=== PATIENT | female | born 1970 | race Caucasian/White ===

== ENCOUNTER → 2020-09-01 10:14 | Outpatient (CLI) | payer MEDICARE, OTHER, SELFPAY ==
--- NOTE | 2020-09-01 10:33 | MRI_ITS ---
STUDY: MRI PELVIS (ATTENTION SACROILIAC JOINTS) REASON FOR EXAM: Chronic pain, right greater than left, evaluate for sacroiliitis. TECHNIQUE: Standardized fat and water weighted pulse sequences were obtained in all 3 orthogonal planes. COMPARISON: Radiograph 07/05/2017. FINDINGS: Normal bilateral sacral alae. Normal bilateral sacroiliac joints without periarticular bone edema or osseous erosions. Normal iliac wings. Normal bilateral hip joints and proximal femurs. Normal bilateral inferior and superior pubic rami. Normal pubic symphysis. Normal visualized sacral vertebrae. Normal sacrococcygeal junction with normal visualized coccygeal segments. Normal visualized presacral adipose space. The visualized soft tissue structures of the pelvis are unremarkable. MRI/Pelvis (Routine) IMPRESSION: No MRI manifestations of sacroiliitis. Electronically Signed: Js Conley MD at 11:49 EST Tel , Service support ,
== END ==
PROVIDERS: PCP Family Medicine
DX: M54.9 Dorsalgia, unspecified (principal)
CPT/HCPCS: 72195

== ENCOUNTER 2020-11-06 00:40 | Emergency (ER) | payer OTHER, MEDICARE, SELFPAY ==
[2020-11-06 00:42] VITALS: BP 141/78; PULSE 103; RESP 24; TEMP 37.1; O2SAT 98; BMI 42.7
--- NOTE | 2020-11-06 01:02 | EKG12_ITS ---
Test Reason : CP Blood Pressure : / mmHG Vent. Rate : 096 BPM Atrial Rate : 096 BPM P-R Int : 128 ms QRS Dur : 076 ms QT Int : 354 ms P-R-T Axes : 034 048 015 degrees QTc Int : 447 ms Normal sinus rhythm Cannot rule out Anterior infarct , age undetermined Abnormal ECG Confirmed by BHAVIN MCCLOUD, LENNY ([id number]), marketing editor UMAIR CABRERA ([id number]) on 11/07/2020 11:08:40 AM Referred By: MURTAZA Confirmed By:LENNY DELCID MD
--- NOTE | 2020-11-06 01:02 | RAD_ITS ---
STUDY: X-RAY CHEST REASON FOR EXAM: Female, 49 years old. Indigestion and chest pain TECHNIQUE: Single AP portable view of the chest. COMPARISON: 07/05/2017 FINDINGS: Linear atelectasis versus scar formation at bilateral lung bases, unchanged. No confluent airspace opacity. No pleural effusion or pneumothorax. Normal size heart. Normal mediastinum and gilbert. Normal visualized pulmonary arteries. Normal visualized aortic arch and descending thoracic aorta. There are diffuse degenerative changes of the visualized thoracic spine. Normal visualized ribs, clavicles, and shoulders. There is no demonstrated abnormality of the visualized soft tissue structures of the upper abdomen. RAD/Chest 1 View (Portable) IMPRESSION: No acute cardiopulmonary disease Electronically Signed: Matt Alicea MD at 1:27 EST Tel , Service support ,
--- NOTE | 2020-11-06 01:03 | ED.DCSUM_ITS ---
History of Present Illness Chief Complaint: Chest Pain Informant: Patient Onset: Days - 4 Activity at onset: Unknown - started mild, progressively more uncomfortable Quality: Indigestion Location: Substernal - radiating up into throat, no other radiation Current Severity: Moderate Maximum Severity: Moderate Worsened By: Eating, - - lying supine - worse at night, accordingly Relieved By: Nothing - has only tried taking extra omeprazole Associated Symptoms: Lightheadedness - couple times. Negative for: Nausea, Vomiting, Diaphoresis, Dyspnea, Cough, Fever, Palpitations Narrative: 49-year-old female with nonexertional nonpleuritic chest discomfort that started mildly and has progressively worsened over 4 days. She presents around 1 in the morning because she was getting concerned. She states she thinks it is reflux- related so she took an extra omeprazole off and on, but it is not helping. She has been on omeprazole for reflux for years and does not even remember what reflux symptoms feel like to her because it seems to do its job, and this is unusual despite taking her omeprazole like it is prescribed. She states it is worse when she lies down and it is worse at nighttime, and she feels it worse when food is going down after swallowing. She denies any recent leg pain or swelling, no history of DVT or PE, takes no aspirin or anticoagulants, no history of heart problems that she knows of. CVD Risk Factors: Negative for: Hypertension, Diabetes, Hypercholesterolemia, Family History 1' </=55, Smoking PE Risk Factors: Negative for: Recent Travel/Surgery, Recenet Immobilization, Prior DVT or PE, Cancer, OCP + Smoking + >/=35 - Past Medical History (1) GERD (gastroesophageal reflux disease) Status: Chronic (2) Anxiety Status: Chronic (3) Mood disorder Status: Chronic Past Medical History - Allergies and Home Meds Allergies/Adverse Reactions: Allergies acetaminophen [From Percocet] Allergy (Verified 11/06/20 00:41) Hives NSAIDS (Non-Steroidal Anti-Inflamma Allergy (Verified 11/06/20 00:41) Hives oxycodone [From Percocet] Allergy (Verified 11/06/20 00:41) Hives Primary Care Physician: Care Physician,No Primary [Primary Care Provider] - Surgical History: - - Gastric banding and revision Smoking Status: Never smoker Review of Systems General: Denies: Chills, Fever, Sweats Eyes: Denies: Visual changes - bilaterally, Diplopia ENT: Denies: Bilateral ear pain, Rhinorrhea, Sore throat Cardiovascular: Reports: Chest pain. Denies: Palpitations Respiratory: Denies: Dyspnea, Cough, Dyspnea on exertion, Orthopnea Gastrointestinal: Denies: Abdominal pain, Nausea, Vomiting, Diarrhea, Melena, Hematochezia Genitourinary: Denies: Dysuria, Hematuria, Frequency Musculoskeletal: Reports: Back pain - Mild chronic low back pain, unchanged. Denies: Myalgias, Neck pain, Swelling, Extremity Pain Skin: Denies: Rash, Wounds Neurological: Denies: Headache, Weakness, Numbness Physical Exam Vital Signs/Narrative: Vital Signs Temp Pulse Resp BP Pulse Ox 11/06/20 00:42 98.7 F 103 H 24 H 141/78 H 98 Inital Vital Signs reviewed: Yes General: Well nourished, Well developed, Obese, No Acute Distress Head: Normocephalic, Atraumatic Eyes: Perrl, EOMI ENT: Moist mucous membranes, No rhinorrhea Neck: Supple, Nontender Cardiovascular: Regular rate, Regular rhythm, No murmurs Respiratory: No distress, CTA bilaterally, Chest nontender Abdomen: Soft, Nontender, Nondistended, Normal bowel sounds Back: Nontender, Normal Inspection. Negative for: CVA tenderness Extremities: Nontender, No edema. Negative for: Calf Tenderness Skin: Normal color, No rash, No Trauma Neurological: Alert, Oriented x3, Cranial nerves II-XII grossly intact, Normal Strength, Normal Sensation, Normal Gait Psychological: Normal affect, Normal Mood Diagnostic/Tx/Re-eval Impressions Chest X-Ray 11/06/20 01:02 IMPRESSION: No acute cardiopulmonary disease Electronically Signed: Matt Alicea MD at 1:27 EST Tel , Service support , 11/06/20 01:02 Chest 1 View (Portable) [RAD] Stat Laboratory Results 11/06/20 11/06/20 01:15 01:15 WBC 11.7 H RBC 4.35 Hgb 12.7 Hct 39.9 MCV 91.7 MCH 29.2 MCHC 31.8 L RDW Std Deviation 51.3 H RDW Coeff of Viet 15.3 H Plt Count 158 MPV 11.2 Immature Gran % (Auto) 0.300 Neut % (Auto) 69.8 Lymph % (Auto) 20.9 [place] % (Auto) 6.9 Eos % (Auto) 1.8 Baso % (Auto) 0.3 Absolute Neuts (auto) 8.1 H Absolute Lymphs (auto) 2.44 Nucleated RBC % 0 Sodium 139 Potassium 3.6 Chloride 105 Carbon Dioxide 31.0 Anion Gap 3 L BUN 9 Creatinine 0.58 Estim Creat Clear Calc 102.43 Est GFR (MDRD) Af Amer 142 Est GFR (MDRD) Non-Af 118 BUN/Creatinine Ratio 15.5 Glucose 111 H Calcium 8.8 Troponin I < 0.015 - Rhythm Strip Rhythm Strip: Sinus Rhythm Rate: 95 Ectopy: None - EKG Initial EKG Interpretation: Sinus Rhythm, No Acute Injury Pattern - Slightly late R wave transition but otherwise normal EKG Prior: No Prior Treatment: GI Cocktail TACO Risk: No Positive TACO Elements - Heart score 2 (hx and age) Score: 0 - Medical Decision Making Patient was given a GI cocktail, she states it did not seem to do anything. She is comfortable-appearing and her vital signs are normal, her mild tachycardia resolved and I think was probably related to anxiety. Her work-up is negative including EKG and cardiac enzymes. The machine was calling her EKG is a possible anterior infarct. I think there is a small upward deflection indicating septal depolarization, which would make the downward QRS complex S waves instead of Q waves, and I do not think this is indicative of anything acute. With 4 days of constant discomfort, symptoms that sound gastrointestinal in nature, and a negative troponin, I do not think she needs further emergent work-up tonight for this. She is in agreement, she was given a dicyclomine and a prescription to use it as needed for discomfort, and to follow-up. She she [facility], if her symptoms do not resolve she may need EGD for further investigation but I do not think a CT or anything else will be helpful here tonight. ED Disposition - Plan for ED Patient: Disposition: Home or Assisted Living Diagnosis: Chest pain, unspecified, GERD (gastroesophageal reflux disease) Instructions: ED Chest Pain, Noncardiac Prescriptions: Dicyclomine HCl [Bentyl] 20 mg PO Q6H PRN #20 cap PRN Reason: abdominal cramping Prescription Printed Referrals: Doctor,Your [STAFF PHYSICIAN] - 3-5 Days if not improving
--- NOTE | 2020-11-06 01:10 | ED.RN ---
NO OLD EKG
[2020-11-06] MEDS: Mag Hydrox/Al Hydrox/Simeth 30 ML UDC PO (01:13)
[2020-11-06 01:19] LABS: Absolute Lymphocyte Count 2.44 X10^3/uL (0.83-4.51); Absolute Neutrophil Count 8.1 X10^3/uL (2.0-7.7); Basophil# 0.04 X10^3/uL; Basophil% 0.3 % (0-1); Eosinophil# 0.21 X10^3/uL; Eosinophils% 1.8 % (0-5); Hematocrit 39.9 % (37-47); Hemoglobin 12.7 g/dL (12.0-15.0); Lymphocyte # 2.44 X10^3/ul (4.0); Lymphocyte % 20.9 % (19-41); Mean Corp Hgb Conc 31.8 g/dL (32-36); Mean Corpuscular Hgb 29.2 pg (27.0-32.0); Mean Corpuscular Volume 91.7 fL (81-99); Mean Platelet Vol. 11.2 fl (6.2-12.0); Monocyte# 0.81 X10^3/uL; Monocyte% 6.9 % (0-10); NRBC Flagged by Analyzer 0 % (0-5); Neutrophil # 8.13 X10^3/uL (2.7-7.7); Neutrophil % 69.8 % (47-70); Platelet Count 158 K/mm3 (150-450); RBC Distribution Width CV 15.3 % (11.6-14.6); RBC Distribution Width SD 51.3 fl (35.1-43.9); Red Blood Count 4.35 M/mm3 (4.2-5.4); White Blood Count 11.7 K/mm3 (4.4-11.0)
[2020-11-06 01:38] LABS: Anion Gap 3 (5-15); BUN 9 mg/dL (7-18); BUN/Creat Ratio 15.5 RATIO (10-20); Calcium,Total 8.8 mg/dL (8.5-10.1); Chloride 105 mmol/L (98-107); Creatinine, Serum 0.58 mg/dL (0.55-1.02); EST Glomerular Filtration Rate 118 mL/min (>60); Est Glom Filt Rate - Afr Amer 142 mL/min (>60); Estimated Creatinine Clearance 102.43 ml/min; Glucose 111 mg/dL (74-106); Potassium 3.6 mmol/L (3.5-5.1); Sodium Level 139 mmol/L (136-145)
[2020-11-06 02:24] VITALS: BP 141/84; PULSE 92; RESP 15; O2SAT 95
== END 2020-11-06 02:24 | disposition home or self-care (01) ==
LOC: ED 02:11
PROVIDERS: Emergency Provider Emergency Medicine
DX: K21.9 Gastro-esophageal reflux disease without esophagitis (principal); R07.9 Chest pain, unspecified; Z79.899 Other long term (current) drug therapy; E66.9 Obesity, unspecified
CPT/HCPCS: 71045; 80048; 84484; 85025; 93005; 99285; A4216

== ENCOUNTER 2021-01-15 20:16 | Emergency (ER) | payer OTHER, MEDICARE, SELFPAY ==
[2021-01-15 20:17] VITALS: BP 166/109; PULSE 107; RESP 18; TEMP 36.3; O2SAT 98; BMI 43.9
--- NOTE | 2021-01-15 20:51 | ED.VISSUMM ---
- ER Visit Summary Date of Service: 01/15/21 Chief Complaint: [Left elbow pain] History of Present Illness: The patient is a 50 F [presents to the emergency department with pain in her left elbow that she has had for approximately a week. She denies any injury or trauma. 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 Patient does not do a lot of repetitive motions with her arms. She currently has a torn rotator cuff in her left shoulder for which she is scheduled to see orthopedics on the of the month. Patient complains of pain with pronation and supination at the elbow. She cannot take NSAIDs and states that pain medicines no to anything for her and she does not even take anything after surgeries. Denies recent travel or surgery. Denies chest pain or shortness of breath. She does have history of anxiety and GERD.] Physical Examination: [HEENT-PERRLA, EOMI. Cranial nerves II through XII grossly intact. TMs clear. Mucous membranes moist. No adenopathy. Cardiovascular-regular rate and rhythm without murmur or ectopy Lungs-clear to auscultation, chest wall stable without crepitus or subcu emphysema Abdomen-normoactive bowel sounds, soft, nontender, no rebound or rigidity, no peritoneal signs. Extremities-intact ?4, normal range of motion, normal pulses, atraumatic. Left elbow-there is no erythema or swelling noted. No evidence of trauma. Patient has normal flexion extension at the elbow. She does complain of some discomfort with pronation and supination at the elbow. Has normal range of motion in all the digits. Neurovascularly intact intact.] Test Results: [3 view x-rays of the left elbow obtained interpreted by myself as normal without evidence of fracture dislocation or anything otherwise significant. Official radiology report pending.] Emergency Department Course and Treatment: [Patient was given 40 g of prednisone p.o. as she is requesting this because she has had it in the past for similar issues and has history of arthritis and typically it helps her since she cannot take any other pain medications.] Treatment Plan: [Patient will be given a 5-day course of prednisone. She is advised to follow-up with her orthopedic surgeon.] Disposition: [Discharged home in stable condition] Impression: [Left elbow pain-etiology uncertain] This note was generated with [employer] software. It may contain incorrect words, spelling, and punctuation that were not noted in review of the chart prior to signing ED Disposition - Plan for ED Patient: Referrals: Care Physician,No Primary [NON-STAFF] -
--- NOTE | 2021-01-15 21:06 | RAD_ITS ---
STUDY: X-RAY - LEFT ELBOW REASON FOR EXAM: Female, 50 years old. Pain TECHNIQUE: 3 view(s) of the elbow. COMPARISON: None. FINDINGS: Normal visualized humerus, radius and ulna. Normal radiocapitellar and ulnotrochlear articulations. The soft tissue structures are unremarkable. RAD/Elbow min 3 Views IMPRESSION: Normal x-ray examination of the elbow. Electronically Signed: Duke Morales MD at 21:49 EDT Tel , Service support ,
--- NOTE | 2021-01-15 21:35 | DCINST.ED_ITS ---
ED Disposition - Plan for ED Patient: Instructions: ED Sprain, Elbow Prescriptions: Prednisone [Deltasone] 20 mg PO BID #8 tablet Transmission Status: Pending to [id number] Referrals: Care Physician,No Primary [NON-STAFF] - Olman Logan DO [STAFF PHYSICIAN] - 3-5 Days
[2021-01-15 21:39] VITALS: BP 124/80; PULSE 78; RESP 19; TEMP 36.6; O2SAT 98
[2021-01-15] MEDS: predniSONE 20 MG Tablet 40 MG PO (21:42)
== END 2021-01-15 21:43 | disposition home or self-care (01) ==
LOC: ED 21:11
PROVIDERS: Emergency Provider Emergency Medicine
DX: M25.522 Pain in left elbow (principal); K21.9 Gastro-esophageal reflux disease without esophagitis; F41.9 Anxiety disorder, unspecified; Z79.899 Other long term (current) drug therapy
CPT/HCPCS: 73080; 99283

== ENCOUNTER 2021-03-25 19:10 | Emergency (ER) | payer OTHER, MEDICARE, SELFPAY ==
[2021-03-25 15:49] VITALS: BMI 42.0
[2021-03-25 19:11] VITALS: BP 155/92; PULSE 102; RESP 18; TEMP 36.6; O2SAT 98; BMI 42.8
--- NOTE | 2021-03-25 19:32 | EX.ED.DYSGE1 ---
HPI History of Present Illness Chief Complaint: Other, Pain/Inj Detail of Chief Complaint: Pain in her arms and legs especially the joints Informant: patient Narrative Narrative: Patient presents to the emergency department complaining of pain and inflammation in her hands and elbows as well as shoulders as well as her lower extremities from the hips to the knees and ankles. Patient's had symptoms for over a month. She has had similar episodes in the past that have responded well to prednisone. Patient has been seen by rheumatology at the [facility] and apparently they told her she did not have any inflammation in her body. Patient does not have a primary care physician currently. Patient also complains that she has a small pimple just inferior to her vagina on the right side that her mother tried to pop couple weeks ago but has not resolved. She denies fevers or chills or recent illness. Prior similar symptoms: Yes PFSH PFSH Medical History (Updated 03/25/21 @ 19:[address] Ramón Bradford, DO) Abnormal bruising Arthritis Chest pain Chronic neck and back pain Fatigue Incontinence Knee pain Limb weakness Shoulder pain Tachycardia Uncontrolled hypertension Uveitis Home Medications lithium carbonate 300 mg PO QHS 01/15/21 [History Last Taken Unknown] omeprazole 20 mg PO DAILY 01/15/21 [History Last Taken Unknown] biotin 1 mg capsule 1 mg PO DAILY 03/25/21 [History Last Taken Unknown] cephalexin 500 mg PO Q6 #40 capsule 03/25/21 [Rx Last Taken Unknown] cholecalciferol (vitamin D3) 10 mcg (400 unit) capsule 10 mcg PO DAILY 03/25/21 [History Last Taken Unknown] duloxetine 20 mg capsule,delayed release 20 mg PO BID 03/25/21 [History Last Taken Unknown] prednisone 20 mg PO BID #8 tab 03/25/21 [Rx Last Taken Unknown] Allergy/AdvReac Type Severity Reaction Status Date / Time acetaminophen [From Percocet] Allergy Hives Verified 03/25/21 19:23 adhesive Allergy hives Verified 03/25/21 19:23 NSAIDS (Non-Steroidal Allergy Hives Verified 03/25/21 19:23 Anti-Inflamma oxycodone [From Percocet] Allergy Hives Verified 03/25/21 19:23 Surgical History Surgical history unknown Social History (Updated 03/25/21 @ 15:54 by Rox Escobedo) Smoking Status: Never smoker alcohol intake: current alcohol intake frequency: holidays/special occasions only Alcohol type: other ROS ROS ED Constitutional Constitutional ED: Reports systems reviewed and no addt'l complaints, except as documented; Denies body ache(s), change in weight or chills Eyes Eyes: Denies acute decrease in peripheral vision, change in vision, double vision or loss of vision ENT ENT ED: Reports none; Denies ear pain, lip swelling, loss taste/smell, neck pain, otalgia or sore throat Cardiovascular Cardiovascular: Reports none; Denies abdominal pain, chest pain with activity, leg edema, lightheadedness, palpitations, rapid heart rate or syncope Respiratory/Chest Respiratory/Chest: Reports none; Denies change in mental status, dry cough, dyspnea, hemoptysis, shortness of breath at rest or shortness of breath with exertion Gastrointestinal Gastrointestinal: Reports none; Denies abdominal pain, change in stool character, diarrhea, hematemesis, hematochezia, melena, rectal bleeding or vomiting Genitourinary Genitourinary ED: Reports none and other Details: Pimple/pustule inferior to right side of vagina ; Denies abdominal discomfort, anuria, dysuria, genital pain or polyuria Musculoskeletal Musculoskeletal: Reports none, arthralgias and other; Denies back pain, difficulty walking, extremity pain, muscle weakness or myalgias Integumentary Reports none; Denies abscess or rash Neurologic Neurologic: Reports none; Denies abnormal gait, confusion, focal weakness, frequent falls, headache(s), loss of vision, numbness, paresthesias, radicular pain, vertigo or weakness Psychiatric Psychiatric: Reports systems reviewed and no addt'l complaints, except as documented and none; Denies behavioral changes, confusion, difficulty concentrating, hallucinations, suicidal ideation, tactile hallucinations or visual hallucinations Endocrine Endocrinology: Denies none, cold intolerance, excessive sweating, fatigue or heat intolerance Hematologic/Lymphatic Hematologic/Lymphatic: Reports none; Denies anemia, easy bleeding or easy bruising Allergic/Immunologic Allergic/Immunologic ED: Denies as per HPI, none, lip swelling, mouth swelling, throat swelling, tongue swelling or hives EXAM Physical Exam Const Vital Signs: 03/25/21 19:11 03/25/21 19:23 Temperature 97.9 F Temperature Source Temporal Pulse Rate 102 H Respiratory Rate 18 Respiratory Effort Normal Non-Labored Blood Pressure 155/92 H Blood Pressure Mean 113 Pulse Ox 98 Oxygen Delivery Method Room Air Positive well nourished and well developed General Appearance ED: well developed and NAD HEENT Reports TM's clear and moist mucous membranes normocephalic and atraumatic; Negative for trauma or tenderness Tympanic Membrane ED: Yes TM's clear Eyes PERRL and EOMs intact bilaterally General Eye ED: Negative for pale conjunctiva or scleral icterus Neck no lymphadenopathy, supple and no JVD General: Negative for tenderness Chest Wall inspection of chest normal and palpation of chest normal Chest: Negative for tenderness Resp normal respiratory effort and clear to auscultation bilaterally Effort and Inspection: Negative for respiratory distress or pain with movement Auscultation: Negative for rhonchi, wheezes or diminished lung sounds Cardio regular rate, regular rhythm, S1 normal heart sound, S2 normal heart sound and no murmurs Peripheral Pulses: pulses 2+ throughout GI normal to inspection, nondistended, normoactive bowel sounds, soft to palpation, non-tender, non-distended and no masses Narrative: With nurse in room was able to evaluate patient's complaint of pimple just inferior to the right side of the vagina. On the right side of her buttock inferior to the vagina there is a small pustule that was draining small amount of blood and purulent debris which I was able to continue to express. Back/Spine no CVA tenderness and no thoracic nor lumbar tenderness Extremity normal to inspection Extremity Narrative: Patient has good range of motion in all digits. I do not appreciate any erythema or warmth to the joints. She does complain of pain with range of motion of her fingers. General Extremety ED: Negative for edema General Extremity: Negative for edema Neuro oriented x3, CN's II-XII intact bilaterally, no sensory deficits noted and gait normal Sensorium / Orientation: awake, alert, oriented to person, oriented to place and oriented to time Motor Exam: strength 5/5 throughout and strength abnormal Psych mental status grossly normal Skin no rashes or lesions noted and no wounds MDM MDM MDM Narrative Medical decision making narrative: Patient will be started on prednisone. She will be given a prescription for Keflex. Patient to follow-up with primary care physician loss prevention representative for no doc. Discharge Plan Triage Chief Complaint: Other, Pain/Inj ED Provider: Ramón Bradford Dx/Rx/DC Orders Clinical Impression: Arthralgia, Abscess Instructions: ED Abscess Antibiotic Treatment Only, ED Arthralgia Prescriptions: New cephalexin [cephalexin] 500 MG capsule 500 mg PO Q6 Qty: 40 RF: 0 prednisone 20 mg tablet 20 mg PO BID Qty: 8 RF: 0 No Action cholecalciferol (vitamin D3) 10 mcg (400 unit) capsule 10 mcg PO DAILY RF: 0 biotin 1 mg capsule 1 mg PO DAILY RF: 0 duloxetine [Cymbalta] 20 mg capsule,delayed release(DR/EC) 20 mg PO BID RF: 0 lithium carbonate 300 MG capsule 300 mg PO QHS RF: 0 omeprazole 20 MG capsule,delayed release(DR/EC) 20 mg PO DAILY RF: 0 [facility] Referrals: Shonna Burns MD [STAFF PHYSICIAN] - 3-5 Days [facility] [Primary Care Provider] - Disposition Disposition: Home, Self Care
[2021-03-25] MEDS: predniSONE 20 MG Tablet 40 MG PO (19:52)
== END 2021-03-25 19:53 | disposition home or self-care (01) ==
LOC: ED 19:52
PROVIDERS: Emergency Provider Emergency Medicine
DX: M25.542 Pain in joints of left hand (principal); M25.541 Pain in joints of right hand; M25.522 Pain in left elbow; M25.521 Pain in right elbow; M25.552 Pain in left hip; M25.551 Pain in right hip; M25.562 Pain in left knee; M25.561 Pain in right knee; M25.572 Pain in left ankle and joints of left foot; M25.571 Pain in right ankle and joints of right foot; M25.512 Pain in left shoulder; M25.511 Pain in right shoulder; L02.31 Cutaneous abscess of buttock; I10 Essential (primary) hypertension; Z79.899 Other long term (current) drug therapy
CPT/HCPCS: 99283

== ENCOUNTER → 2021-05-05 08:37 | Outpatient (CLI) | payer MEDICARE, SELFPAY ==
--- NOTE | 2021-05-05 08:41 | BI_ITS ---
MAMMOGRAPHY - BILATERAL SCREENING REASON FOR EXAM: Female, 50 years old. Routine annual screening examination. PERTINENT HISTORY: Non-contributory. TECHNIQUE: Digital bilateral breast renae (3D mammographic acquisition) in the CC and MLO projections. 2-D mediolateral oblique (MLO) and craniocaudad (CC) views of both breasts were obtained. CAD: Full Field Digital Mammography with Computer Added Detection was performed. COMPARISON: No comparison mammograms available at this time. If any prior films become available, an addendum to this report can be generated. FINDINGS: Breast Composition: There are scattered areas of fibroglandular density. There are no dominant masses or suspicious calcifications. Small benign-appearing bilateral axillary lymph nodes. No other significant abnormalities are identified. BI/SCRN MAMM (CAD)W/RENAE BILAT IMPRESSION: Negative screening mammogram. Yearly followup mammogram recommended. (A) ASSESSMENT CATEGORY: BIRADS Category 2: Benign. A letter regarding these results will be sent to the patient by the facility within 30 days. Approximately 10% of breast cancers are not detected by mammography. A normal mammogram should not delay biopsy of a clinically suspicious abnormality. [id number] Electronically Signed: Sammy Degroot MD at 12:53 EDT , Service support ,
== END ==
PROVIDERS: Referring Provider Internal Medicine; Visit Provider Internal Medicine
DX: Z12.31 Encounter for screening mammogram for malignant neoplasm of breast (principal)
CPT/HCPCS: 77063; 77067

== ENCOUNTER 2021-09-04 18:57 | Observation (INO) | payer MEDICARE, SELFPAY ==
[2021-08-24 15:43] LABS: Hematocrit 37.9 % (37-47); Hemoglobin 12.1 g/dL (12.0-15.0); Mean Corp Hgb Conc 31.9 g/dL (32-36); Mean Corpuscular Volume 93.8 fL (81-99); Mean Platelet Vol. 12.6 fl (6.2-12.0); Platelet Count 196 K/mm3 (150-450); RBC Distribution Width SD 52.2 fl (35.1-43.9); Red Blood Count 4.04 M/mm3 (4.2-5.4); White Blood Count 7.9 K/mm3 (4.4-11.0)
[2021-08-24 15:48] LABS: Internal QC Validated? YES +Cl - CLEAR BKGD; Pregnancy, Urine Negative Negative
[2021-08-24 15:55] LABS: International Normalized Ratio 1.1; Prothrombin Time (Protime)PT. 13.3 SECONDS (11.7-14.9)
[2021-08-24 15:56] LABS: Partial Thromboplast Time 34.2 Seconds (24.1-36.2)
[2021-08-24 16:08] LABS: AST(SGOT) 18 U/L (15-37); Alanine Aminotransfer ALT/SGPT 23 U/L (13-56); Albumin, Serum 3.2 g/dL (3.2-5.0); Alkaline Phosphatase 84 U/L (45-117); Bilirubin, Direct 0.07 mg/dL (0.00-0.30); Globulin 3.9 g/dL (2.2-4.2); Magnesium 2.1 mg/dL (1.6-2.6); Protein, Total 7.1 g/dL (6.4-8.2)
[2021-09-04] VITALS (11 sets, daily range): BP systolic 120–156; BP diastolic 80–102; PULSE 83–100; RESP 16–18; TEMP 36.5–37.6; O2SAT 95–100; BMI 43.0
--- NOTE | 2021-09-04 | BR_PTH ---
PATIENT: JENNIFER STAUFFER LOC: MS3 U#:[id number] AGE/SX: 50/F ROOM: [facility] [place] RE09/04/[address]: Dr. Gorge Denton MD : 1970 BED: 1 DIS: 09/05/2021 SPEC #: [id number] RECD: 09/04/21 15:28 STATUS: BRUNO CABANAnia #: [id number] TELMA: 09/04/21 00:[address]: Gorge Denton DEPT: SURGICAL PATHOLOGY RECD BY: Matt Quiros ENTERED: 09/07/21 10:37 SP TYPE: MAMOPLASTY OTHR DR: MD Dr. Pat Gauthier, Tissues: A - Right breast, NOS B - Left breast, NOS Procedures: Surgery Specimen Level IV HEADER OPERATION: ERAS, breast reduction mammoplasty PRE-OP DIAGNOSIS: Bilateral macromastia, neck pain, thoracic back pain, bilateral shoulder pain, inframammary intertrigo TISSUE SUBMITTED: A ? Right breast, B ? Left breast MICROSCOPIC DIAGNOSIS A. Right breast, reduction mammoplasty: Fibrocystic change. Skin with no pathologic change. B. Left breast, reduction mammoplasty: Fibrocystic change. Skin with no pathologic change. AM:trip 09/09/2021 MICROSCOPIC DESCRIPTION Slides are reviewed. GROSS DESCRIPTION A - Received in fixative is one container labeled with the patient's name and designated right breast tissue. The specimen consists of multiple pieces of fibroadipose tissue with a few of the pieces showing romero-white skin and weighing in aggregate 932 gm and measuring in aggregate 24 x 20 x 6 cm. No skin lesion is identified. Sections reveal yellow adipose cut surfaces mixed with scant romero-white fibrous area. No mass lesion is identified. Quartz Orientator sections are submitted in six cassettes. Cassette 1 contains the skin piece. B - Received in fixative is one container labeled with the patient's name and designated left breast tissue. The specimen consists of multiple pieces of fibroadipose tissue with a few of the pieces showing romero-white skin and weighing in aggregate 788 gm and measuring in aggregate 22 x 19 x 6 cm. No skin lesion is identified. Sections reveal yellow adipose cut surfaces mixed with scant fibrous areas. No mass lesion is identified. Quartz Orientator sections are submitted in six cassettes. Cassette 1 contains the skin piece. / SJ:trip 09/07/21 TC:5 CPT: 73113 x2
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
[2021-09-04 07:06] LABS: Internal QC Validated? YES +Cl - CLEAR BKGD; Pregnancy, Urine Negative Negative
[2021-09-04] MEDS: Gabapentin 600 MG Tablet PO (07:20)
[2021-09-04] MEDS: Scopolamine 1mg/72hr Patch 1 PATCH TD (07:21)
[2021-09-04] MEDS: Acetaminophen 500 MG Tablet 1000 MG PO ×2 (07:21→18:25)
[2021-09-04] MEDS: Lactated Ringers 1,000 ML 40 ML IV ×4 (07:50→14:00)
[2021-09-04 07:51] LABS: Bedside Glucose 68 mg/dL (70-110)
[2021-09-04] MEDS: Cefazolin 2 GM in 0.9% Normal Saline 100 ML IV (09:06)
[2021-09-04] MEDS: Lidocaine 1% /Epi 1:100 (20ml) 20 ML Vial (09:45)
--- NOTE | 2021-09-04 15:32 | SUR.PHASEI ---
RASH ON CHEST NOTED ON INTIAL ASSESSMENT IN PRE OP. PATIENT MONITORED ON ERAS ETCO2 NASAL CANNULA IN PHASE 1. WILL CONT TO MONITOR.
--- NOTE | 2021-09-04 16:27 | PCM.OPRPT ---
Problems Associated Problem List Diagnoses (1) Macromastia: (2) Chronic neck pain: (3) Chronic thoracic back pain: (4) Shoulder pain: (5) Intertrigo: Report of Operation Date of Procedure: 09/04/21 Pre-Operative Diagnosis: 1. Bilateral macromastia. 2. Neck pain. 3. Thoracic back pain. 4. Bilateral shoulder pain from shoulder grooving from the weight of the breasts on her bra straps. 5. Inframammary intertrigo. Post-Operative Diagnosis: Same. Surgery/Procedure Performed:: Bilateral breast reduction mammaplasty Description of Surgical Findings:: 50 year old female presents with complaints of bilateral macromastia as well as associated painful symptomatology of neck pain, thoracic back pain, bilateral shoulder pain from shoulder grooving from the weight of her breast on her bra straps, an inframammary intertrigo for which she uses powders for relief. She denies any trauma to her breasts. Denies any nipple discharge. She has had physical therapy in the past without much back pain relief. Her last mammogram was done 05/05/21 and showed Scattered areas of fibroglandular density. There are no dominant masses or suspicious calcifications. Small benign-appearing bilateral axillary lymph nodes. She denies any family history of breast cancer. She has a history of gastric bypass in 2002 where she lost 100 lbs. She has since gained about 80 lbs back. Over the past year she has lost 12 lbs. She has a history of uveitis and had been on steroids, both orally and injected into the eye. We have received medical approval for the bilateral breast reduction mammaplasty. It is scheduled for tomorrow, 09/04/21. She had last minute questions regarding the surgery that were answered personally and to her satisfasction. She also signed the office consent. Patient was informed of the risks and complications of the procedure including alternatives to surgery. These were discussed with the patient personally. Patient voices understanding and wishes to proceed. Some of the risks and complications were included in a form from the [place] [employer]. Potential risks and complications included but not inclusive of bleeding, infection, seroma, hematoma, bruising, swelling, prolonged need for drains, loss of sensation to skin, partial or complete loss of skin flap, wound breakdown, need for wound care, poor scarring, poor aesthetic outcome, intra operative cardiac or neurologic events, DVT, PE, and reaction to anesthesia. Patient voiced understanding and wished to proceed with the surgery. IV Fluids - 3200 ml. Urine Output - 1150 ml. Tissue removed from left breast - 734 grams. Tissue removed from right breast - 810 grams. I used AmnioFix Placental Connective Tissue Graft, (2 x 12 cm, I used 2 pieces, one for each Tzone area). Catalog Number - [id number]. Lot Number - [id number]. Expiration - January, (left breast). Catalog Number - [id number]. Lot Number - [id number]. Expiration - December 01, 2025, (right breast). Surgeon: Gorge Denton enterprise software engineer: Lv Agiuar enterprise software engineer: Fabian Valle Type of Anesthesia: General Specimen's removed: 1. Left breast tissue to Pathology. 2. Right breast tissue to Pathology. Drains: John x2 (one in each breast). Estimated Blood Loss (mL): 150 ml. Fluids Replaced: 4350 ml (IV Fluids 3200 ml, Urine [place] - 1150 ml. Description of Procedure: In the preop area, the patient was placed in the sitting position and preoperative markings were made. The sternum midline was marked down to the umbilicus. The inframammary folds were marked bilaterally. The midclavicular line was then marked down to the nipple, then from the nipple to the inframammary fold. The inframammary fold was then superimposed on the midclavicular line and I made a point 1 cm below that to be the new position of the nipple-areolar complex. 7 cm lines were then drawn divergent from that point to encompass the nipple-areolar complex. The distance between the divergent lines was 10 cm. The patient was then placed in the supine position and taken to the operating room and placed under general anesthesia and her breasts were prepped and draped in usual fashion. Ioban draping was also used. SCDs were placed for DVT prophylaxis. Perioperative antibiotics were given intravenously. A Poe catheter was also placed. I then grayson straight lines down from the lines drawn divergent around the nipple-areolar complex down to the inframammary fold. The width of the pedicle is 10 cm. I then used a 45 mm circular template for a new size of the nipple-areolar complex. The central markings were infiltrated with Xylocaine and epinephrine. The central skin was then deepithelialized. I started on the left side first and then went to the right side. I then mobilized medial and lateral breast flaps at the level of Molina's fascia down to about 1-2 cm from the chest wall. This was met in the midline of the breast with dissection at the level of Molina's fascia down to about 1-2 cm from the chest wall. Once the central breast mound pedicle was from the skin envelope, the reduction was then begun. Most of the tissue was removed from the superior aspect of the breast and the lateral aspect of the breast. I then sutured the leading edge of the medial and lateral breast flaps to the midline of the inframammary fold with 2-0 Vicryl suture. The vertical incision was approximated using surgical clips. The excess tissue from the medial and lateral breast flaps were excised and the horizontal incision was approximated using surgical clips. The patient was then placed in a sitting position. Using a vertical limb length of 5 cm, I grayson the new position of the new nipple-areolar complexes on both breasts. They were in good position on the central aspect of the breast mound. Good symmetry was noted between the left breast and the right breast. Good shape and contour and projection were noted and appeared clinically to be a full C cup. The patient was then placed back in the supine position and the surgical clips were removed. The breast wounds were then irrigated with Irrisept 0.05% Chlorhexidine solution which was followed by saline irrigation. Hemostasis was obtained using electrocautery. The tissue removed from the left breast was 734 grams. The tissue removed from the right breast was 810 grams. The tissue that was removed from the breasts was sent to Pathology for analysis to rule out carcinoma. After hemostasis was obtained using electrocautery, I then sprayed Natacha absorbable hemostat into both breast wounds. I used two vials for each side. I then placed a size 15 John drain into each breast wound to be brought through the lateral aspect of the horizontal incision. I then closed the breast wounds by first approximating the leading edge of the medial and lateral breast flaps to the midline of the inframammary fold with 2-0 Vicryl suture. I then placed AmnioFix placental connective tissue graft into both wounds at the level of the Tzone to help with the healing process. I used 2 x 12 cm for each Tzone, and each piece cut into 2 strips. The deep dermis and subcutaneous tissue of the vertical incision and the horizontal incisions were approximated using 3-0 Monocryl interrupted sutures. The horizontal incision was then approximated using 4-0 V-Loc unidirectional barbed running subcuticular suture. I also placed a few 4-0 Prolene vertical mattress interrupted sutures at the level of the Tzone. The vertical incision was then closed on the skin with 4-0 Prolene interrupted sutures. With a vertical limb length of 5 cm, I grayson a circular incision where the nipple-areolar complex would be brought through this keyhole incision. Incisions were made and the nipple areolar complex was brought through the keyhole incision. The nipple-areolar complex was secured to the breast skin using 3-0 Monocryl interrupted sutures for deep dermis and subcutaneous tissue. The skin was approximated using 4-0 Prolene simple interrupted sutures. This was then covered with Histoacryl skin tissue adhesive. I sutured the drains to the skin using 3-0 nylon suture. At the end of the procedure, the breasts were soft with no evidence of vascular compromise. No evidence of hematomas were noted. The nipples were viable. I then dressed the breasts with a Kerlix gauze and a compression marko wrap. Then patient tolerated the procedure well and will be sent to the recovery room in satisfactory condition. She will be admitted for surgical observation overnight stay. She will go home tomorrow once she is tolerating oral pain medication. I will remove the drains in a few days. She will keep her head elevated during the initial postoperative period. She will be maintained on a lifting restriction and keep her head elevated during the initial postoperative period. Post-discharge, she may get a compression sports bra as well. She will have the Poe removed in the morning. She will be sent home on antibiotics and pain medicine. Sutures will be removed in 1-2 weeks. Grafts/Implants Used: AmnioFix Placental Connective Tissue grafts x2, Natacha. Complications None. Admit VTE Documentation VTE Present on Admission: No VTE Mechan Device Prophylaxis: SCD's VTE Pharm Prophylaxis ordered?: Yes Addendum Addendum: SURGERY CHARGES CPT - 73282 ICD-10 - N62, M54.2, M54.6, M25.519, L340.4 [id number] N62, M54.2, M54.6, M25.519, L340.4
--- NOTE | 2021-09-04 16:37 | SUR.PHASEI ---
ERAS O2 NASAL CANNULA ON UNTIL 1704
--- NOTE | 2021-09-04 16:46 | SUR.PHASEI ---
VM LEFT FOR DR. WHITE TO ENTER ADMISSION ORDER AND FLOOR ORDERS. PATIENT AWAITING TRANSFER TO FLOOR. VSS. WILL CONT TO MONITOR.
--- NOTE | 2021-09-04 16:51 | SUR.PHASEI ---
MOTHER, SHELL UPDATED BY PHONE.
--- NOTE | 2021-09-04 17:12 | SUR.PHASEII ---
THIS NURSE VERBALLY ASKED DR. WHITE TO WRITE ORDERS FOR PATIENT TO BE TRANSFERRED UP TO THIRD FLOOR.
--- NOTE | 2021-09-04 20:52 | NURSING ---
Patient told this RN that she was very painful 8/10, then within three minutes was asleep and snoring.
[2021-09-04] MEDS: Lactated Ringers 1,000 ML 60 ML IV (21:03)
[2021-09-04] MEDS: Docusate Sodium 100 MG Capsule PO (21:03)
[2021-09-05] MEDS: Acetaminophen 500 MG Tablet 1000 MG PO ×4 (00:37→18:24)
[2021-09-05] MEDS: HYDROmorphone 1 MG/ML Syringe IV (00:37)
[2021-09-05 02:04] VITALS: BP 145/89; PULSE 101; RESP 16; TEMP 36.7; O2SAT 94
[2021-09-05 05:27] VITALS: BP 132/71; PULSE 73; RESP 20; TEMP 36.7; O2SAT 93
[2021-09-05 06:54] VITALS: O2SAT 93
[2021-09-05 07:27] LABS: Hematocrit 30.9 % (37-47); Mean Corp Hgb Conc 32.4 g/dL (32-36); Mean Corpuscular Hgb 29.6 pg (27.0-32.0); Mean Corpuscular Volume 91.4 fL (81-99); Mean Platelet Vol. 11.4 fl (6.2-12.0); Platelet Count 176 K/mm3 (150-450); RBC Distribution Width SD 50.3 fl (35.1-43.9); Red Blood Count 3.38 M/mm3 (4.2-5.4); White Blood Count 10.3 K/mm3 (4.4-11.0)
[2021-09-05 07:51] LABS: Anion Gap 5 (5-15); BUN 6 mg/dL (7-18); BUN/Creat Ratio 11.2 RATIO (10-20); Calcium,Total 8.2 mg/dL (8.5-10.1); Chloride 108 mmol/L (98-107); Creatinine, Serum 0.54 mg/dL (0.55-1.02); EST Glomerular Filtration Rate 128 mL/min (>60); Est Glom Filt Rate - Afr Amer 155 mL/min (>60); Estimated Creatinine Clearance 104.25 ml/min; Glucose 112 mg/dL (74-106); Potassium 3.8 mmol/L (3.5-5.1); Sodium Level 140 mmol/L (136-145)
[2021-09-05 07:59] LABS: Prealbumin 13.6 mg/dL (20.0-40.0)
[2021-09-05] MEDS: Ensure Surgery 237 ML LIQUID PO ×2 (08:36→12:25)
[2021-09-05 08:42] VITALS: BP 111/61; PULSE 107; RESP 18; TEMP 36.9; O2SAT 99
[2021-09-05] MEDS: Pantoprazole Sodium 20 MG Tablet PO (10:59)
[2021-09-05] MEDS: Enoxaparin 40 MG/0.4 ML Syringe SC (10:59)
[2021-09-05] MEDS: Docusate Sodium 100 MG Capsule PO (10:59)
--- NOTE | 2021-09-05 12:30 | PCS.PANDOC ---
PANDEMIC DOCUMENTATION INITIATED: Date: 05/18/2021 Time: 190
[2021-09-05 14:32] VITALS: BP 126/66; PULSE 98; RESP 18; TEMP 37.1; O2SAT 98
--- NOTE | 2021-09-05 19:39 | PCM.PN.SRG ---
Subjective Subjective Postop #1 Patient is resting comfortably. She is steady on her feet with ambulation. After cam removed, she is voiding without difficulty. Objective Data Objective Data Vital Signs: Vital Signs Temp Pulse Resp BP Pulse Ox 98.7 F 98 18 126/66 H 98 09/05/21 14:32 09/05/21 14:32 09/05/21 14:32 09/05/21 14:32 09/05/21 14:32 Oxygen Flow Rate (L/min) 2 Oxygen Delivery Method Room Air Weight: 242 lb 8.136 oz Body Mass Index (BMI) 43.0 Intake & Output: Intake and Output for Last 24 Hours 09/03/21 09/04/21 09/05/21 23:59 23:59 23:59 Intake Total 3393.17 / 3393.17 3573.33 / 3573.33 Output Total 1513 / 1913 2400 / 2400 Balance 1880.17 / 1480.17 1173.33 / 1173.33 Drainage 103 ml yesterday, 60 ml today. Lab / Micro Data Attestation: I reviewed the patient's lab results. Result Diagrams: 09/05/21 07:01 09/05/21 07:01 Labs: Laboratory Results - last 24 hr 09/05/21 07:01: Prealbumin 13.6 L 09/05/21 07:01: WBC 10.3, RBC 3.38 L, Hgb 10.0 L, Hct 30.9 L, MCV 91.4, MCH 29.6, MCHC 32.4, RDW Std Deviation 50.3 H, RDW Coeff of Viet 15.0 H, Plt Count 176, MPV 11.4 09/05/21 07:01: Sodium 140, Potassium 3.8, Chloride 108 H, Carbon Dioxide 27.0, Anion Gap 5, BUN 6 L, Creatinine 0.54 L, Estim Creat Clear Calc 104.25, Est GFR (MDRD) Af Amer 155, Est GFR (MDRD) Non-Af 128, BUN/Creatinine Ratio 11.2, Glucose 112 H, Calcium 8.2 L Physical Exam Narrative General - Alert and Oriented. HEENT - PERRL. EOMI. Neck - Supple and nontender. Breasts - soft and symmetrical. No clinical evidence of hematoma. Incisions are dry and intact. Nipples are viable. Abdomen - Soft and nondistended. Extremities - FROM. No axillary adenopathy. Radial pulses are palpable. Neuro - CN II-XII grossly intact. Psych - Normal mood and affect. Assessment & Plan Assessment/Plan (1) Macromastia: (2) Chronic neck pain: (3) Chronic thoracic back pain: (4) Shoulder pain: (5) Intertrigo: PLAN: Patient is tolerating po analgesia. She is steady on her feet with ambulation. Her breasts are soft and symmetrical. No clinical evidence of hematoma. Incisions are dry and intact. Nipples are viable. Will remove her drains in the office next week. Hgb 10.0. Prealbumin was 13.6. Encourage nutritional supplementation with protein to help the healing process. Discharge home today. Continue head elevation and marko wrap compression over the breasts. Will be on a lifting restriction. Wrote script for Cefadroxil until the drains are removed. Wrote script for Dilaudid for pain, 4 mg, (28 tabs). Followup office on 09/08/21, to remove the drains. The nipple sutures will be removed the following week.
--- NOTE | 2021-09-05 19:40 | PCM.DC ---
Discharge Instructions Diet Discharge Diet: No restrictions Activity Discharge Activity: May Not Drive (until the drains are removed.) and - (keep head elevated. no heavy lifting.) May shower in (days): 4 (after the drains are removed.) May resume sexual activity in: 10-14 days Weight Bearing Status: Weight bearing as tolerated Lifting Restrictions: 20 lbs. Keep extremity elevated above heart level: - (elevate head.) Dressing / Incision Call your doctor if your incision/area has: Continuous Slow Oozing, Sudden Increased Bleeding, Increased Pain/ Swelling, Increased Redness, Foul Smelling Discharge, Swelling at the incision site and - (nipples turning black.) Call your doctor if you observe: Fever of 101 or Higher, Coldness, Increased Pain, Shortness of breath, Chest pain, Calf discomfort and Uncontrolled pain Suture Line Care: - (dry dressing daily followed by compression marko wrap.) Change Dressing in: 1 day (dry dressing daily.) Cleanse incision/area with: - (may get incisions wet in the shower after the drains are removed.) Drain: Suction (empty and record output daily.) Follow Up Care Please Follow Up With: Gorge Denton MD When: tuesday09/07/21. call [phone] for appointment time. Test Results: Test results from this visit will be discussed in further detail at your follow-up appointment, if applicable. Discharge Plan Admission Admit Date/Time: 09/04/21 18:57 Primary Reason for Your Visit: breast reduction surgery Attending Provider: Gorge Denton Primary Care Provider: Pat Brown Consulting Providers: Daniel Doss Discharge Orders/Prescriptions Prescriptions: New cefadroxil 500 mg capsule 500 mg PO BID Qty: 10 RF: 0 L.acidoph,saliva-B.bif-S.therm [Acidophilus Probiotic Blend] 175 mg capsule 1 cap PO DAILY Qty: 10 RF: 0 hydromorphone [Dilaudid] 4 mg tablet 4 mg PO Q6H PRN (Reason: pain (scale score 7-10)) 7 Days Qty: 28 RF: 0 Continued cholecalciferol (vitamin D3) 10 mcg (400 unit) capsule 10 mcg PO DAILY RF: 0 biotin 1 mg capsule 1 mg PO DAILY RF: 0 lithium carbonate 300 MG capsule 450 mg PO QHS RF: 0 omeprazole 20 MG capsule,delayed release(DR/EC) 20 mg PO DAILY RF: 0 multivitamin Tablet 1 tab PO DAILY RF: 0 duloxetine [Cymbalta] 60 mg Capsule,Delayed Release(Dr/Ec) 120 mg PO DAILY RF: 0 Probiotic 10 billion cell Capsule 10,000 mmu cells PO DAILY RF: 0 Referrals / Follow Up: Pat Brown DO [Primary Care Provider] - Disposition Disposition (needs filled in before D/C Order can be placed): Home, Self Care
[2021-09-05 20:06] VITALS: BP 132/76; PULSE 101; RESP 18; TEMP 37.3; O2SAT 97
== END 2021-09-05 20:07 | disposition home or self-care (01) ==
LOC: SDC 09-05 03:34 → MS3 09-05 19:50
PROVIDERS: Anesthesiology; Admitting Provider Surgery; PCP Internal Medicine; Referring Provider Surgery; Visit Provider Surgery
PROC: 0H0U0ZZ Alteration of Left Breast, Open Approach (ICD-10-PCS; CPT 19318; principal; 2021-09-04 08:15)
DX: N62 Hypertrophy of breast (principal); G89.29 Other chronic pain; M54.2 Cervicalgia; M54.6 Pain in thoracic spine; M25.512 Pain in left shoulder; M25.511 Pain in right shoulder; L30.4 Erythema intertrigo; Z98.84 Bariatric surgery status; M19.90 Unspecified osteoarthritis, unspecified site; F32.A Depression, unspecified; K21.9 Gastro-esophageal reflux disease without esophagitis; K58.9 Irritable bowel syndrome, unspecified; I10 Essential (primary) hypertension; Z79.899 Other long term (current) drug therapy; R53.83 Other fatigue; R32 Unspecified urinary incontinence; D64.9 Anemia, unspecified; R07.9 Chest pain, unspecified; H91.90 Unspecified hearing loss, unspecified ear; R00.0 Tachycardia, unspecified; N60.11 Diffuse cystic mastopathy of right breast
CPT/HCPCS: 00402; 19318; 36415; 80048; 80076; 81025; 82962; 83735; 84134; 85027; 85610; 85730; 88305; 96372; 96374; 99218; 99251; J7120; G0378; G0463; J2405; Q9968

== ENCOUNTER → 2021-09-24 14:40 | Outpatient (CLI) | payer MEDICARE, SELFPAY | PROVIDERS: PCP Internal Medicine; Visit Provider Nurse Practitioner Family | DX: T81.89XA Other complications of procedures, not elsewhere classified, initial encounter (principal); N62 Hypertrophy of breast; L30.4 Erythema intertrigo; M25.519 Pain in unspecified shoulder; M54.6 Pain in thoracic spine; B37.2 Candidiasis of skin and nail; G89.29 Other chronic pain; M54.2 Cervicalgia; Z98.890 Other specified postprocedural states | CPT/HCPCS: 87070; 87075; 87077; 87205 ==

== ENCOUNTER 2021-11-02 13:46 | Outpatient (RCR) | payer MEDICARE, SELFPAY | END 2021-11-02 23:59 | disposition home or self-care (01) | LOC: DC 13:46 | PROVIDERS: PCP Internal Medicine; Visit Provider Internal Medicine | DX: E11.9 Type 2 diabetes mellitus without complications (principal) | CPT/HCPCS: 97802 ==

== ENCOUNTER 2021-12-25 09:12 | Outpatient (CLI) | payer MEDICARE, SELFPAY ==
--- NOTE | 2021-12-25 09:29 | BI_ITS ---
MAMMOGRAPHY - UNILATERAL DIAGNOSTIC: RIGHT BREAST REASON FOR EXAM: Female, 51 years old. Right breast pain following breast reduction surgery. PERTINENT HISTORY: Non-contributory. TECHNIQUE: Digital unilateral breast fab (3D mammographic acquisition) in the CC and MLO projections. 2-D mediolateral oblique (MLO) and craniocaudad (CC) views of both breasts were obtained. CAD: Full Field Digital Mammography with Computer Added Detection was performed. COMPARISON: Comparison is made with prior examination dated 05/05/2021. FINDINGS: Breast Composition: There are scattered areas of fibroglandular density. Since prior study, the patient underwent breast reduction surgery. There is evidence of increased markings in the deep inferior medial aspect of the right breast most likely representing postoperative changes. Stable appearance of the right axillary lymph nodes. Correlation with ultrasound is recommended. No other significant abnormalities are identified. BI/DIAG MAMM W/CAD, UNILAT IMPRESSION: Status post breast reduction surgery with interval increased markings in the deep inferior medial aspect of the right breast. Correlation with ultrasound at the site of the pain is recommended. ASSESSMENT CATEGORY: BIRADS Category 0: Incomplete. Need additional imaging evaluation. A letter regarding these results will be sent to the patient by the facility within 30 days. Approximately 10% of breast cancers are not detected by mammography. A normal mammogram should not delay biopsy of a clinically suspicious abnormality. Electronically Signed: Sammy Degroot MD at 11:12 EDT ,
--- NOTE | 2021-12-25 09:29 | US_ITS ---
STUDY: ULTRASOUND BREAST - RIGHT REASON FOR EXAM: Female, 51 years old. Right breast pain. Status post bilateral breast reduction surgery. TECHNIQUE: Axial and longitudinal images of the RIGHT breast were performed with a high resolution ultrasound transducer. # OF IMAGES: 48 COMPARISON: Comparison is made with prior mammogram done earlier today. FINDINGS: RIGHT Breast: The inferior half of the right breast was examined by ultrasound. There is an 8 mm x 8 mm x 3 mm cyst at the 5 o''clock position the breast at 3 cm from the nipple. The overlying skin is erythematous. US/Breast Limited Unilateral IMPRESSION: 8 mm x 8 mm x 3 mm cyst at the 5 o''clock position breast at 3 cm from the nipple. The overlying skin is erythematous. Clinical correlation is recommended. ASSESSMENT CATEGORY: BIRADS Category 2: Benign. A letter regarding these results will be sent to the patient by the facility within 30 days. Electronically Signed: Sammy Degroot MD at 14:36 EDT ,
== END 2021-12-25 23:59 | disposition home or self-care (01) ==
PROVIDERS: PCP Internal Medicine; Referring Provider Nurse Practitioner Family; Visit Provider Nurse Practitioner Family
DX: N64.4 Mastodynia (principal); N63.10 Unspecified lump in the right breast, unspecified quadrant; T81.41XA Infection following a procedure, superficial incisional surgical site, initial encounter; N62 Hypertrophy of breast; Z98.890 Other specified postprocedural states
CPT/HCPCS: 76642; 77061; 77065; G0279

== ENCOUNTER 2022-02-27 22:09 | Emergency (ER) | payer OTHER, SELFPAY ==
[2022-02-27 22:10] VITALS: BP 157/99; PULSE 99; RESP 16; TEMP 37.4; O2SAT 97; BMI 41.1
--- NOTE | 2022-02-28 00:04 | EX.ED.DYSGE1 ---
HPI History of Present Illness Chief Complaint: General Illness Informant: patient Narrative Narrative: Patient presents with lower extremity symptoms starting about a day or so after her pain pump stopped functioning. She has been having some tingling and burning in both anterior legs. She feels a bit anxious. However she has had no headache. No tremors. No nausea vomiting. No sleepiness or drowsiness. No dry mouth. [place] [address] Block manages this. He just refilled it recently with saline to check it. It emptied very quickly. They think its been draining quicker than it is supposed to. It is likely in need of replacement due to its age and malfunction. She is going to be seeing him again on Tuesday. She states she just is having trouble with the symptoms. [facility] Medical History Abnormal bruising Anemia Arthritis Autoimmune disease Back pain Back problem Carpal tunnel syndrome Cataracts, bilateral Chest pain Chronic neck and back pain Chronic neck pain Chronic thoracic back pain Depression Excessive bleeding Fatigue Gallstones Gastric reflux Generalized headaches Hearing problem History of edema History of pain when walking History of steroid therapy IBS (irritable bowel syndrome) Incontinence Injury of back Intertrigo Knee pain Limb weakness Macromastia Migraine headache Non-smoker Pneumonia Rash Shoulder pain Shoulder pain Tachycardia Uncontrolled hypertension Uveitis Vision changes Home Medications lithium carbonate 450 mg PO QHS 01/15/21 [History Last Taken Unknown] omeprazole 20 mg PO DAILY 01/15/21 [History Last Taken 09/04/21] biotin 1 mg capsule 1 mg PO DAILY 03/25/21 [History Last Taken Unknown] cholecalciferol (vitamin D3) 10 mcg (400 unit) capsule 10 mcg PO DAILY 03/25/21 [History Last Taken Unknown] duloxetine [Cymbalta] 120 mg PO DAILY 08/21/21 [History Last Taken Unknown] multivitamin 1 tab PO DAILY 08/21/21 [History Last Taken Unknown] Allergy/AdvReac Type Severity Reaction Status Date / Time methylene blue Allergy Mild Rash, Verified 02/27/22 22:14 Itching acetaminophen [From Percocet] Allergy Hives Verified 02/27/22 22:14 adhesive Allergy hives Verified 02/27/22 22:14 NSAIDS (Non-Steroidal Allergy Hives Verified 05/28/22 22:14 Anti-Inflamma oxycodone [From Percocet] Allergy Hives Verified 02/27/22 22:14 Family History Other Arthritis Depression Hypertension Severe allergy Surgical History Ganglion cyst History of Achilles tendon repair History of History of carpal tunnel release of both wrists History of cataract surgery History of discectomy History of incisional hernia repair History of meniscal tear History of tonsillectomy and adenoidectomy History of vitrectomy Hx laparoscopic cholecystectomy Hx of bilateral breast reduction surgery Hx of laparoscopic gastric banding Rotator cuff tear Surgical history unknown Tendinitis of wrist Total knee replacement status Social History Smoking Status: Never smoker alcohol intake: current alcohol intake frequency: holidays/special occasions only Alcohol type: other substance use type: does not use additional social history: Does Not Take Aspirin Does Not Take Ibuprofen ROS ROS ED Constitutional Constitutional ED: Reports subjective and other Details: Patient occasionally feels febrile or feverish but when her temperature is taken its normal. ; Denies chills or fever(s) Eyes Eyes: Denies blurry vision, change in vision or diplopia ENT ENT ED: Denies rhinorrhea or sore throat Cardiovascular Cardiovascular: Denies chest pain or palpitations Respiratory/Chest Respiratory/Chest: Denies cough, dyspnea or sputum Gastrointestinal Gastrointestinal: Denies abdominal pain, nausea or vomiting Genitourinary Genitourinary ED: Denies dysuria Musculoskeletal Musculoskeletal: Reports back pain and myalgias Integumentary Denies abscess or rash Neurologic Neurologic: Denies headache(s) or weakness Psychiatric Psychiatric: Denies depression Endocrine Endocrinology: Denies polydipsia or polyuria Allergic/Immunologic Allergic/Immunologic ED: Denies urticaria EXAM Physical Exam Const Vital Signs: 02/27/22 22:10 02/27/22 22:23 Temperature 99.3 F H Temperature Source Temporal Pulse Rate 99 Respiratory Rate 16 Respiratory Effort Normal Non-Labored Respiratory Pattern Normal Blood Pressure 157/99 H Blood Pressure Mean 118 Pulse Ox 97 Oxygen Delivery Method Room Air Positive well nourished and well developed General Appearance ED: well developed and NAD HEENT Reports moist mucous membranes; Denies dry mucous membranes Mouth ED: No dry mucous membranes Mouth: No dry mucous membranes Eyes General Eye ED: Negative for pale conjunctiva or scleral icterus Neck No no JVD Chest Wall inspection of chest normal Resp normal respiratory effort and clear to auscultation bilaterally Cardio regular rate and regular rhythm GI normal to inspection, nondistended, normoactive bowel sounds and non-tender Palpation: soft Back/Spine no CVA tenderness Back/Spine Narrative: Pain pump is palpable in left upper buttock. No signs of infection. No notable tenderness. Extremity normal to inspection Extremity Narrative: There are no tremors of hands or feet. Reflexes are slightly stronger left than the right but she is also had surgery on the right over her patellar tendon. The Achilles reflexes are normal. Her strength is normal. Her gait is normal. No sign of neurologic deficit. General Extremety ED: Negative for edema or tenderness General Extremity: Negative for edema Neuro oriented x3 Sensorium / Orientation: alert Psych mental status grossly normal Skin no rashes or lesions noted and no wounds MDM MDM MDM Narrative Medical decision making narrative: I talked to patient's about options. I explained that I cannot fix or manage her pain pump. I cannot prescribe her long-term pain meds as she is already seen in pain management. I will try to help with a dose of morphine here. She states that oral medicines really do not help for her at all. This patient has no loss of sensation or strength or coordination. No bowel or bladder dysfunction. I do not think she needs acute imaging. She is really having isolated lower extremity symptoms. This is not typical of a lithium abnormality. I think she we will try to control her symptoms here. She plans to see her pain management doctor on Tuesday Discharge Plan Triage Chief Complaint: General Illness ED Provider: Cheko Shea Dx/Rx/DC Orders Clinical Impression: Left leg paresthesias Instructions: ED Paraesthesias Prescriptions: No Action cholecalciferol (vitamin D3) 10 mcg (400 unit) capsule 10 mcg PO DAILY RF: 0 biotin 1 mg capsule 1 mg PO DAILY RF: 0 lithium carbonate 300 MG capsule 450 mg PO QHS RF: 0 omeprazole 20 MG capsule,delayed release(DR/EC) 20 mg PO DAILY RF: 0 multivitamin Tablet 1 tab PO DAILY RF: 0 duloxetine [Cymbalta] 60 mg Capsule,Delayed Release(Dr/Ec) 120 mg PO DAILY RF: 0 Primary Care Provider: Pat Brown Referrals: Ramy Block MD [STAFF PHYSICIAN] - As soon as possible Pat Brown DO [Primary Care Provider] - Disposition Disposition: Home, Self Care
[2022-02-28] MEDS: morphine 10 MG/ML Syringe 4 MG SC (00:14)
== END 2022-02-28 00:27 | disposition home or self-care (01) ==
PROVIDERS: Emergency Provider Emergency Medicine; PCP Internal Medicine; Visit Provider Emergency Medicine
DX: R20.2 Paresthesia of skin (principal); I10 Essential (primary) hypertension
CPT/HCPCS: 87635; 96372; 99282; U0003; U0005

== ENCOUNTER 2022-02-28 10:34 | Emergency (ER) | payer OTHER, SELFPAY ==
[2022-02-28 10:35] VITALS: BP 189/107; PULSE 104; RESP 18; TEMP 36.6; O2SAT 97; BMI 41.6
--- NOTE | 2022-02-28 10:52 | EX.ED.DYSGE1 ---
HPI History of Present Illness Chief Complaint: Lower Extremity Injury Detail of Chief Complaint: Bilateral leg pain Informant: patient Onset/Context/Timing Onset: Days Context: Gradual Onset Timing: Waxes and wanes Current Severity: Moderate Maximum Severity: Moderate Narrative Narrative: Patient presents with restless sensation in the bilateral thighs. She has a history of chronic back pain for which she has had a morphine pain pump. She states the alarm went off recently indicating that the pump emptied faster than it should have. She saw Dr. Block last week who filled it with saline. It emptied after only 3 days. Patient is complaining of pain in her thighs. She states the pain pump was used to treat her back pain only, she never really had problems with restless legs. She was seen in the ER last night and given 4 mg of subcu morphine which she states did not help her symptoms. She states she did drive herself to the emergency room. She understands that we cannot write her for injectable pain medication and she states that oral pain medications do not help her. She states she is just hoping to get something to help with the restless sensation in her legs. [facility] Medical History Abnormal bruising Anemia Arthritis Autoimmune disease Carpal tunnel syndrome Cataracts, bilateral Chronic neck and back pain Depression Excessive bleeding Gallstones Gastric reflux Generalized headaches Hearing problem History of edema History of pain when walking History of steroid therapy IBS (irritable bowel syndrome) Incontinence Injury of back Intertrigo Knee pain Limb weakness Macromastia Non-smoker Shoulder pain Tachycardia Uncontrolled hypertension Uveitis Vision changes Home Medications lithium carbonate 450 mg PO QHS 01/15/21 [History Last Taken Unknown] omeprazole 20 mg PO DAILY 01/15/21 [History Last Taken 09/04/21] biotin 1 mg capsule 1 mg PO DAILY 03/25/21 [History Last Taken Unknown] cholecalciferol (vitamin D3) 10 mcg (400 unit) capsule 10 mcg PO DAILY 03/25/21 [History Last Taken Unknown] duloxetine [Cymbalta] 120 mg PO DAILY 08/21/21 [History Last Taken Unknown] multivitamin 1 tab PO DAILY 08/21/21 [History Last Taken Unknown] pramipexole [Mirapex] 0.125 mg PO DAILY #14 tab 02/28/22 [Rx Last Taken Unknown] Allergy/AdvReac Type Severity Reaction Status Date / Time methylene blue Allergy Mild Rash, Verified 02/28/22 10:37 Itching acetaminophen [From Percocet] Allergy Hives Verified 02/28/22 10:37 adhesive Allergy hives Verified 02/28/22 10:37 NSAIDS (Non-Steroidal Allergy Hives Verified 02/28/22 10:37 Anti-Inflamma oxycodone [From Percocet] Allergy Hives Verified 02/28/22 10:37 Family History Other Arthritis Depression Hypertension Severe allergy Surgical History Ganglion cyst History of Achilles tendon repair History of History of carpal tunnel release of both wrists History of cataract surgery History of discectomy History of incisional hernia repair History of meniscal tear History of tonsillectomy and adenoidectomy History of vitrectomy Hx laparoscopic cholecystectomy Hx of bilateral breast reduction surgery Hx of laparoscopic gastric banding Rotator cuff tear Surgical history unknown Tendinitis of wrist Total knee replacement status Social History Smoking Status: Never smoker alcohol intake: current alcohol intake frequency: holidays/special occasions only Alcohol type: other substance use type: does not use additional social history: Does Not Take Aspirin Does Not Take Ibuprofen ROS ROS ED Constitutional Constitutional ED: Denies chills or fever(s) Eyes Eyes: Denies change in vision ENT ENT ED: Denies sore throat Cardiovascular Cardiovascular: Denies chest pain Respiratory/Chest Respiratory/Chest: Denies cough or dyspnea Gastrointestinal Gastrointestinal: Denies abdominal pain, nausea or vomiting Genitourinary Genitourinary ED: Denies dysuria Musculoskeletal Musculoskeletal: Reports arthralgias, back pain and myalgias Integumentary Denies rash Neurologic Neurologic: Denies headache(s) or weakness Allergic/Immunologic Allergic/Immunologic ED: Denies urticaria EXAM Physical Exam Const Vital Signs: 02/28/22 10:35 Temperature 98 F Temperature Source Temporal Pulse Rate 104 H Respiratory Rate 18 Blood Pressure 189/107 H Blood Pressure Mean 134 Pulse Ox 97 Oxygen Delivery Method Room Air Positive well nourished and well developed General Appearance ED: well developed HEENT Reports moist mucous membranes Eyes PERRL and EOMs intact bilaterally Neck supple Chest Wall inspection of chest normal and palpation of chest normal Resp normal respiratory effort and clear to auscultation bilaterally Cardio regular rate and regular rhythm GI normal to inspection, nondistended, normoactive bowel sounds and non-tender Palpation: soft Extremity Extremity Narrative: No reproducible tenderness over the legs. Good range of motion at joints. Strong distal pulses. Neuro oriented x3 Sensorium / Orientation: alert Psych mental status grossly normal Skin no rashes or lesions noted MDM MDM MDM Narrative Medical decision making narrative: Patient will be started on Mirapex and given a 2-week supply. She is scheduled to see her pain management doctor in a few days for follow-up. Discharge Plan Triage Chief Complaint: Lower Extremity Injury ED Provider: Suyapa Snow Dx/Rx/DC Orders Clinical Impression: Restless leg syndrome Instructions: RLS What to Do Prescriptions: New pramipexole [Mirapex] 0.125 mg tablet 0.125 mg PO DAILY Qty: 14 RF: 0 No Action cholecalciferol (vitamin D3) 10 mcg (400 unit) capsule 10 mcg PO DAILY RF: 0 biotin 1 mg capsule 1 mg PO DAILY RF: 0 lithium carbonate 300 MG capsule 450 mg PO QHS RF: 0 omeprazole 20 MG capsule,delayed release(DR/EC) 20 mg PO DAILY RF: 0 multivitamin Tablet 1 tab PO DAILY RF: 0 duloxetine [Cymbalta] 60 mg Capsule,Delayed Release(Dr/Ec) 120 mg PO DAILY RF: 0 Primary Care Provider: Pat Brown Referrals: Ramy Block MD [STAFF PHYSICIAN] - Keep [place] appointment Pat Brown DO [Primary Care Provider] - As Needed Disposition Disposition: Home, Self Care Discharge Date/Time: 02/28/22 11:07
== END 2022-02-28 11:07 | disposition home or self-care (01) ==
LOC: ED 10:55
PROVIDERS: Emergency Provider Emergency Medicine; PCP Internal Medicine; Visit Provider Emergency Medicine
DX: G25.81 Restless legs syndrome (principal); M54.9 Dorsalgia, unspecified; M79.651 Pain in right thigh; M79.652 Pain in left thigh; M79.605 Pain in left leg; G89.29 Other chronic pain; I10 Essential (primary) hypertension
CPT/HCPCS: 99282

== ENCOUNTER → 2022-03-02 | Outpatient (CLI) | payer MEDICARE, OTHER, SELFPAY ==
[2022-03-02 16:24] LABS: Absolute Lymphocyte Count 3.12 X10^3/uL (0.83-4.51); Absolute Neutrophil Count 7.4 X10^3/uL (2.0-7.7); Basophil# 0.06 X10^3/uL; Basophil% 0.5 % (0-1); Eosinophil# 0.14 X10^3/uL; Eosinophils% 1.2 % (0-5); Hematocrit 41.5 % (37-47); Hemoglobin 13.3 g/dL (12.0-15.0); Lymphocyte # 3.12 X10^3/ul (0.83-4.51); Lymphocyte % 27.1 % (19-41); Mean Corpuscular Hgb 26.8 pg (27.0-32.0); Mean Corpuscular Volume 83.7 fL (81-99); Mean Platelet Vol. 11.6 fl (6.2-12.0); Monocyte# 0.76 X10^3/uL; Monocyte% 6.6 % (0-10); NRBC Flagged by Analyzer 0 % (0-5); Neutrophil # 7.39 X10^3/uL (2.7-7.7); Neutrophil % 64.3 % (47-70); Platelet Count 321 K/mm3 (150-450); RBC Distribution Width SD 53.9 fl (35.1-43.9); Red Blood Count 4.96 M/mm3 (4.2-5.4); White Blood Count 11.5 K/mm3 (4.4-11.0)
[2022-03-02 16:59] LABS: Erythrocyte Sedimentation Rate 21 mm/hr (0-30)
[2022-03-02 17:06] LABS: AST(SGOT) 26 U/L (15-37); Alanine Aminotransfer ALT/SGPT 42 U/L (13-56); Albumin, Serum 4.2 g/dL (3.2-5.0); Alkaline Phosphatase 103 U/L (45-117); Amylase 46 U/L (25-115); Anion Gap 9 (5-15); BUN 10 mg/dL (7-18); BUN/Creat Ratio 12.6 RATIO (10-20); Calcium,Total 9.7 mg/dL (8.5-10.1); Chloride 111 mmol/L (98-107); Creatinine, Serum 0.79 mg/dL (0.55-1.02); EST Glomerular Filtration Rate 81 mL/min (>60); Est Glom Filt Rate - Afr Amer 98 mL/min (>60); Globulin 4.1 g/dL (2.2-4.2); Glucose 104 mg/dL (74-106); Lipase 96 U/L (73-393); Potassium 3.4 mmol/L (3.5-5.1); Protein, Total 8.3 g/dL (6.4-8.2); Sodium Level 141 mmol/L (136-145)
== END | disposition home or self-care (01) ==
LOC: LAB 14:50
PROVIDERS: PCP Internal Medicine; Visit Provider Internal Medicine
DX: R19.7 Diarrhea, unspecified (principal); F32.A Depression, unspecified; R10.84 Generalized abdominal pain
CPT/HCPCS: 36415; 80053; 80178; 82150; 83690; 85025; 85652

== ENCOUNTER → 2022-03-03 | Outpatient (CLI) | payer MEDICARE, SELFPAY | END | disposition home or self-care (01) | LOC: LAB.FUTURE 16:58 | PROVIDERS: PCP Internal Medicine; Visit Provider Internal Medicine | DX: R19.7 Diarrhea, unspecified (principal); F32.A Depression, unspecified; R10.84 Generalized abdominal pain ==

== ENCOUNTER → 2022-03-03 | Outpatient (CLI) | payer MEDICARE, SELFPAY | END | disposition home or self-care (01) | PROVIDERS: PCP Internal Medicine; Referring Provider Internal Medicine; Visit Provider Internal Medicine | DX: R10.84 Generalized abdominal pain (principal); R19.7 Diarrhea, unspecified; F32.A Depression, unspecified | CPT/HCPCS: 82274; 83630; 87493; 87506 ==

== ENCOUNTER 2022-03-26 07:16 | Day surgery (SDC) | payer MEDICARE, SELFPAY ==
[2022-03-26] VITALS (7 sets, daily range): BP systolic 142–153; BP diastolic 84–103; PULSE 90–100; RESP 16–18; TEMP 36.2–37.1; O2SAT 95–99; BMI 41.5
[2022-03-26] MEDS: Lactated Ringers 1,000 ML 15 ML IV (07:40)
[2022-03-26 07:56] LABS: Internal QC Validated? YES +Cl - CLEAR BKGD; Pregnancy, Urine Negative Negative
[2022-03-26] MEDS: Cefazolin 2 GM in 0.9% Normal Saline 100 ML IV (09:30)
[2022-03-26] MEDS: Lidocaine 1% /Epi 1:100 (20ml) 20 ML Vial ×2 (09:51→09:58)
== END 2022-03-26 12:02 | disposition home or self-care (01) ==
LOC: SDC 07:18 → AC 07:20
PROVIDERS: Anesthesiology; PCP Internal Medicine; Visit Provider Anesthesiology Pain Medicine
PROC: (CPT 62355; principal; 2022-03-26 08:45)
DX: G89.4 Chronic pain syndrome (principal); M35.9 Systemic involvement of connective tissue, unspecified; I10 Essential (primary) hypertension; Z82.49 Family history of ischemic heart disease and other diseases of the circulatory system; Z98.84 Bariatric surgery status
CPT/HCPCS: 62355; 81025; J7120; J2274; J2405; J3490

== ENCOUNTER → 2022-06-03 | Outpatient (CLI) | payer MEDICARE, SELFPAY ==
--- NOTE | 2022-06-03 13:35 | US_ITS ---
STUDY: THYROID ULTRASOUND REASON FOR EXAM: Female, 51 years old. ENLARGEMENT TECHNIQUE: Ultrasound evaluation of the thyroid was performed with real-time and static altamirano-scale imaging. COMPARISON: None. FINDINGS: RIGHT LOBE: The right lobe of the thyroid gland measures 4.2 x 1.5 x 1.2 cm. There is a heterogeneous echotexture. Few small (less than 5 mm) anechoic and hypoechoic nodules consistent with colloid cysts and adenomas. LEFT LOBE: The left lobe of the thyroid gland measures 4.8 x 1.3 x 1.5 cm. There is a heterogeneous echotexture. Nodule 1:6 x 6 x 4 mm solid hypoechoic wider than tall smoothly marginated nodules with no echogenic foci (TR 4) in the lateral left lobe consistent with a small adenoma. ISTHMUS: The isthmus measures 3 mm thick. . The regional lymph nodes are normal. US/Thyroid IMPRESSION: Thyroiditis with a small adenoma in the left lobe. Electronically Signed: Joe Irby MD at 17:05 EDT ,
== END | disposition home or self-care (01) ==
PROVIDERS: PCP Internal Medicine; Referring Provider Internal Medicine; Visit Provider Internal Medicine
DX: E04.9 Nontoxic goiter, unspecified (principal)
CPT/HCPCS: 76536

== ENCOUNTER → 2022-06-08 | Outpatient (CLI) | payer MEDICARE, SELFPAY ==
--- NOTE | 2022-06-08 09:27 | BI_ITS ---
MAMMOGRAPHY - BILATERAL DIAGNOSTIC REASON FOR EXAM: Female, 51 years old. Pain bilateral breasts PERTINENT HISTORY: Follow-up of right breast cyst -- To be done in June 2022 TECHNIQUE: Digital bilateral breast fab (3D mammographic acquisition) in the CC and MLO projections. 2-D mediolateral oblique (MLO) and craniocaudad (CC) views of both breasts were obtained. CAD: Full Field Digital Mammography with Computer Added Detection was performed. COMPARISON: 12/25/2021 and 05/05/2021. FINDINGS: Breast Composition: There are scattered areas of fibroglandular density. Linear opacities are seen in the medial and lateral aspect of the right breast are improved since the previous study most likely represent postsurgical changes. Postsurgical changes also noted in the left breast. There are no dominant masses or suspicious calcifications. No other significant abnormalities are identified. BI/DIAG MAMM W/CAD, BILAT IMPRESSION: Further ultrasonographic evaluation recommended, follow-up of cyst in the right breast. (I) ASSESSMENT CATEGORY: BIRADS Category 0: Incomplete. Need additional imaging evaluation. A letter regarding these results will be sent to the patient by the facility within 30 days. Approximately 10% of breast cancers are not detected by mammography. A normal mammogram should not delay biopsy of a clinically suspicious abnormality. Electronically Signed: Portia Ceja MD at 11:18 EDT ,
--- NOTE | 2022-06-08 09:27 | US_ITS ---
STUDY: ULTRASOUND BREAST - RIGHT REASON FOR EXAM: Female, 51 years old. Pain in the right breast. TECHNIQUE: Axial and longitudinal images of the RIGHT breast were performed with a high resolution ultrasound transducer. # OF IMAGES: 22 COMPARISON: Comparison is made with prior mammogram dated 06/08/2022 and prior sonogram of the right breast dated 12/25/2021. FINDINGS: RIGHT Breast: The retroareolar region of the right breast was examined with ultrasound. No sonographic abnormality is seen. IMPRESSION: No sonographic abnormality is seen. ASSESSMENT CATEGORY: BIRADS Category 1: Negative. A letter regarding these results will be sent to the patient by the facility within 30 days. Electronically Signed: Sammy Degroot MD at 12:39 EDT , STUDY: ULTRASOUND BREAST - LEFT REASON FOR EXAM: Female, 51 years old. Pain in the left breast. TECHNIQUE: Axial and longitudinal images of the LEFT breast were performed with a high resolution ultrasound transducer. # OF IMAGES: 22 COMPARISON: Comparison is made with prior mammogram dated 06/08/2022. FINDINGS: LEFT Breast: The retroareolar region of the left breast was examined with ultrasound. No sonographic abnormalities seen. US/Breast Limited Unilateral IMPRESSION: No sonographic abnormalities are seen. ASSESSMENT CATEGORY: BIRADS Category 1: Negative. A letter regarding these results will be sent to the patient by the facility within 30 days. Electronically Signed: Sammy Degroot MD at 12:42 EDT ,
== END | disposition home or self-care (01) ==
LOC: OPBI 09:24
PROVIDERS: PCP Internal Medicine; Visit Provider Nurse Practitioner Family
DX: N64.4 Mastodynia (principal); N60.01 Solitary cyst of right breast; Z98.890 Other specified postprocedural states
CPT/HCPCS: 76642; 77062; 77066; G0279

== ENCOUNTER 2023-03-29 09:45 | Day surgery (SDC) | payer OTHER, SELFPAY ==
--- NOTE | 2023-03-29 10:10 | PCM.HP.BLA ---
History and Physical Date of Admission: 03/29/23 Visit Reasons:?COLONOSCOPY Chief Complaint: c-scope It Trainee Required: No Is patient in pain?: No Allergies methylene blue Allergy (Mild, Verified 03/17/23 13:22) Rash, Itchingsulfamethoxazole [From Bactrim] Allergy (Unknown, Verified 03/17/23 13:22) Othertrimethoprim [From Bactrim] Allergy (Unknown, Verified 03/17/23 13:22) Otheradhesive Allergy (Verified 03/17/23 13:22) hivesNSAIDS (Non-Steroidal Anti-Inflamma Allergy (Verified 03/17/23 13:22) Hivesoxycodone [From Percocet] Allergy (Verified 03/17/23 13:22) Hives Medications lithium carbonate 300 mg capsule 450 mg PO QHS 01/15/21 [History Confirmed 03/17/23] omeprazole 20 mg capsule,delayed release 20 mg PO DAILY 01/15/21 [History Confirmed 03/17/23] biotin 1 mg capsule 1 mg PO DAILY 03/25/21 [History Confirmed 03/17/23] cholecalciferol (vitamin D3) 10 mcg (400 unit) capsule 10 mcg PO DAILY 03/25/21 [History Confirmed 03/17/23] duloxetine 60 mg capsule,delayed release (Cymbalta) 120 mg PO DAILY 08/21/21 [History Confirmed 03/17/23] multivitamin 1 tab PO DAILY 08/21/21 [History Confirmed 03/17/23] hydroxyzine pamoate 50 mg capsule 1 cap PO QHS 03/24/22 [History Confirmed 03/17/23] medroxyprogesterone 150 mg/mL intramuscular syringe (Depo-Provera) 600 mg IM Q3M 03/24/22 [History Confirmed 03/17/23] estradiol 10 mcg vaginal insert 10 mcg vaginal 2XW 03/17/23 [History Confirmed 03/17/23] ferrous fumarate 325 mg (106 mg iron) tablet 325 mg PO BID 03/17/23 [History Confirmed 03/17/23] PFSH Medical History?(Updated 03/17/23 @ 05:[address] Alexx Gary MD) Abnormal bruising Anemia Arthritis Autoimmune disease Carpal tunnel syndrome Cataracts, bilateral Chronic neck and back pain Depression Excessive bleeding Gastric reflux Generalized headaches Hearing problem History of pain when walking History of steroid therapy Hypertension IBS (irritable bowel syndrome) Injury of back Intertrigo Limb weakness Macromastia Non-smoker Sleep apnea Tachycardia Uncontrolled hypertension Uveitis Vision changes Surgical History?(Updated 03/24/22 @ 15:04 by Hawa Koehler) Ganglion cyst History of Achilles tendon repair History of History of carpal tunnel release of both wrists History of cataract surgery History of discectomy History of incisional hernia repair History of meniscal tear History of tonsillectomy and adenoidectomy History of vitrectomy Hx laparoscopic cholecystectomy Hx of bilateral breast reduction surgery Hx of laparoscopic gastric banding Rotator cuff tear Tendinitis of wrist Total knee replacement status Family History? Other Arthritis Depression Hypertension Severe allergy Social History? Smoking Status:? Never smoker alcohol intake:? current alcohol intake frequency: holidays/special occasions only Alcohol type: other substance use type:? does not use additional social history:? Does Not Take Aspirin Does Not Take Ibuprofen HPI HPI HPI: 52-year-old female who is referred by the [facility] system for consideration of a screening colonoscopy and a written compromise surgical consult recommendations will return to them.? Her most recent colonoscopy was November 04, 2017.? As of August 27, 2022 her white blood cell count was 8.3 with a hemoglobin 12.5 and hematocrit of 30.3 and a platelet count of 190,000.? She has a history of a previous colonoscopy November 2017 where a single polyp was removed and follow-up colonoscopy at 5 years recommended. The patient notes multiple chronic aches and pains and issues.? She has not had any bright red blood per rectum or melena.? There is no family history of colon cancer though her dad did have colon polyps.? She does have some irritable bowel symptoms.? She has had the 1 previous colonoscopy. She states she is not on any anticoagulants.? She has not had any DVT ROS General General: Yes weight change and fatigue; No appetite, colon cancer, breast cancer or weakness HEENT HEENT: Yes eye injury, eye surgery and swollen glands; No difficulty swallowing or hoarseness Endo Endocrine: No thyroid disease, diabetes mellitus, thyroid cancer, Hair loss, heat intolerance or cold intolerance Skin Skin: Yes rash; No changing moles Breast Breast: No left breast lump, right breast lump, nipple discharge, breast pain, abnormal mammogram, abnormal US or breast enlargement Musc Musculoskeletal: Yes back problems and arthritis; No rheumatoid arthritis, gout or joint pain Cardio Cardiovascular: No murmur, pacemaker, heart disease, atrial fibrillation, high blood pressure, heart attack, heart stent, palpitations, shortness of breat with exertion or chest pain Psych Psychiatric: No depression, anxiety or hearing voices Resp Respiratory: No shortness of breath, Yes sleep apnea, No cough, No COPD, No asthma, No emphysema and No wheezing Gastro Gastrointestinal: Yes abdominal pain, No nausea or vomiting, Yes diarrhea, No constipation, No blood in stool, Yes acid reflux, No hemorrhoids, No ulcers, No gallbladder problem and No black,tarry stools Jhon Hematologic: No blood thinners, No blood disorders, No bleeding, Yes anemia and No blood clots Neuro Neurologic: No system reviewed and no additional complaints, except as documented, No as per HPI, No abnormal gait, No abnormal hearing, No abnormal movements, No abnormal speech, No behavioral changes, No burning sensations, No confusion, No convulsions, No disequilibrium, No dizziness, No localized weakness, No frequent falls, No headache(s), No lack of coordination, No loss of vision, No memory loss, Yes numbness, No other visual disturbances, No radicular pain, No restless legs, No sensory deficit, No syncope, Yes tingling, No tremor(s), No weakness and No other Exam Const General: cooperative, comfortable and no acute distress Nutritional Appearance: obese [facility] Head: normal to inspection Eyes General: appearance normal, both eyes and all related structures Resp Effort & Inspection: normal respiratory effort Auscultation: clear to auscultation bilaterally Cardio Rate: regular rate Rhythm: regular rhythm GI Palpation: soft and no hepatosplenomegaly Other: Soft, well-healed vertical epigastric midline incision subsequent to retrieval of gastric banding and subsequent ventral hernia repairs x2 [facility] [place] Cervical Spine: normal cervical lordosis Skin General: no rashes or lesions noted Neuro General: patient alert, patient awake and patient oriented x3 Psych Appearance: grossly normal Assessment and Plan Assessment and Plan (1) Personal history of colonic polyps: ?Status:?Acute ?Plan: I recommended the patient a colonoscopy with possible biopsy or polypectomy as indicated.? She is aware of the technique, benefit, risk, alternatives.? She has had an opportunity to ask and have questions answered.? We will schedule and proceed at her discretion.? I anticipate utilizing monitored anesthesia care. Copy: [facility] Alexx Gary M.D., F.Chris.C.S. I have examined the patient and the H&P has been reviewed. There are no clinical changes since date of exam. Alexx Gary M.D., F.A.C.S.
[2023-03-29 10:16] VITALS: BP 159/95; PULSE 103; RESP 18; TEMP 36.1; O2SAT 96; BMI 45.7
[2023-03-29] MEDS: Lactated Ringers 1,000 ML 15 ML IV (10:22)
[2023-03-29 11:05] VITALS: BP 152/97; BP 159/95; PULSE 90; RESP 18; TEMP 36.1; O2SAT 100
--- NOTE | 2023-03-29 11:05 | OP.CCLET_ITS ---
03/29/2023 See above [facility] Re : Colonoscopy procedure for Lorena Miller Dear [facility] This procedure was performed on Wednesday, March 29, 2023. My impressions and recommendations are as follows: Impressions : - Non-thrombosed external hemorrhoids, non-thrombosed internal hemorrhoids and internal hemorrhoids that prolapse with straining, but spontaneously regress to the resting position (Grade II) found on digital rectal exam. - Diverticulosis in the sigmoid colon. - The examination was otherwise normal. - No specimens collected. Recommendations : - Discharge patient to home. - Resume previous diet. - Continue present medications. - Repeat colonoscopy in 5 years for surveillance. My findings are described in the full procedure note, which is enclosed. If I can be of further assistance, please feel free to contact me at Doctor phone number(s): Work: . Sincerely, Alexx Gary MD 03/29/2023 11:04:59 AM This report has been signed electronically.
--- NOTE | 2023-03-29 11:05 | OP.COLON_ITS ---
Patient Name: Lorena Miller Procedure Date: 03/29/2023 10:37 AM Date of : 1970 Age: 52 Procedure: Colonoscopy Indications: High risk colon cancer surveillance: Personal history of colonic polyps Providers: Alexx Gary MD Referring MD: Alexx Gary MD Medicines: See the Anesthesia note for documentation of the administered medications Patient Profile: Last Colonoscopy: November 2017. Complications: No immediate complications. Procedure: Pre-Anesthesia Assessment: - Prior to the procedure, a History and Physical was performed, and patient medications and allergies were reviewed. The patient's tolerance of previous anesthesia was also reviewed. The risks and benefits of the procedure and the sedation options and risks were discussed with the patient. All questions were answered, and informed consent was obtained. Prior Anticoagulants: The patient has taken no previous anticoagulant or antiplatelet agents. ASA Grade Assessment: II - A patient with mild systemic disease. After reviewing the risks and benefits, the patient was deemed in satisfactory condition to undergo the procedure. After I obtained informed consent, the scope was passed under direct vision. Throughout the procedure, the patient's blood pressure, pulse, and oxygen saturations were monitored continuously. The colonoscope was introduced through the anus and advanced to the cecum, identified by appendiceal orifice and ileocecal valve. The colonoscopy was performed without difficulty. The patient tolerated the procedure well. The quality of the bowel preparation was good. The ileocecal valve and the appendiceal orifice were photographed. Scope In: 10:45:41 AM Scope Withdrawal Time 0 hours 8 minutes 20 seconds Scope Out: 10:59:51 AM Total Procedure Duration Time 0 hours 14 minutes 10 seconds Findings: The digital rectal exam findings include non-thrombosed external hemorrhoids, non-thrombosed internal hemorrhoids and internal hemorrhoids that prolapse with straining, but spontaneously regress to the resting position (Grade II). A few diverticula were found in the sigmoid colon. The exam was otherwise without abnormality. Impression: - Non-thrombosed external hemorrhoids, non-thrombosed internal hemorrhoids and internal hemorrhoids that prolapse with straining, but spontaneously regress to the resting position (Grade II) found on digital rectal exam. - Diverticulosis in the sigmoid colon. - The examination was otherwise normal. - No specimens collected. Recommendation: - Discharge patient to home. - Resume previous diet. - Continue present medications. - Repeat colonoscopy in 5 years for surveillance. Procedure Code(s): --- Professional --- 05100, Colonoscopy, flexible; diagnostic, including collection of specimen(s) by brushing or washing, when performed (separate procedure) Diagnosis Code(s): --- Professional --- Z86.010, Personal history of colonic polyps K64.1, Second degree hemorrhoids K64.4, Residual hemorrhoidal skin tags K57.30, Diverticulosis of large intestine without perforation or abscess without bleeding CPT copyright 2017 [employer]. All rights reserved. The codes documented in this report are preliminary and upon support services tech review may be revised to meet current compliance requirements. Alexx Gary MD 03/29/2023 11:04:59 AM This report has been signed electronically. Number of Addenda: 0 Note Initiated On: 03/29/2023 10:37 AM
[2023-03-29 11:10] VITALS: BP 147/93; BP 159/95; PULSE 88; RESP 16; O2SAT 100
[2023-03-29 11:15] VITALS: BP 146/92; BP 159/95; PULSE 85; RESP 18; O2SAT 99
[2023-03-29 11:20] VITALS: BP 152/98; BP 159/95; PULSE 86; RESP 18; TEMP 37.1; O2SAT 100
[2023-03-29 11:55] VITALS: BP 159/95
== END 2023-03-29 11:56 | disposition home or self-care (01) ==
LOC: EN 09:55 → AC 09:56
PROVIDERS: PCP Internal Medicine; Referring Provider Surgery; Visit Provider Surgery
PROC: 0DJD8ZZ Inspection of Lower Intestinal Tract, Via Natural or Artificial Opening Endoscopic (ICD-10-PCS; CPT 45378; principal; 2023-03-29 10:55)
DX: Z12.11 Encounter for screening for malignant neoplasm of colon (principal); K64.4 Residual hemorrhoidal skin tags; K57.30 Diverticulosis of large intestine without perforation or abscess without bleeding; Z86.010 Personal history of colon polyps; K21.9 Gastro-esophageal reflux disease without esophagitis; K64.1 Second degree hemorrhoids; Z79.899 Other long term (current) drug therapy; K58.9 Irritable bowel syndrome, unspecified
CPT/HCPCS: 45378; J7120

== ENCOUNTER → 2023-12-15 | Outpatient (CLI) | payer MEDICARE, SELFPAY ==
--- NOTE | 2023-12-15 09:48 | MRI_ITS ---
STUDY: MRI ARTHROGRAM OF THE RIGHT HIP REASON FOR EXAM: Female, 53 years old. UNILATERAL PRIMARY OSTEOARTHRITIS -- ARTHROGRAM TECHNIQUE: 10 cc of dilute Clariscan contrast was injected into the right hip joint. MRI was obtained in all 3 orthogonal planes. COMPARISON: Pelvis MRI dated 09/01/2020. FINDINGS: Intact right hip joint. There is subchondral edema/cyst formation in the right superior acetabulum (coronal T2 series 4 images 14-15). Normal labrum. Normal femoral head. Normal femoral neck and intratrochanteric region. There is no demonstrated fracture. Normal gluteus minimus, medius and iliopsoas tendons and distal insertions. There is no trochanteric, iliopsoas or iliopectineal bursitis. Normal superior and inferior pubic rami. Normal pubic symphysis. Normal ischial tuberosity. Normal origin of the hamstring tendons. Normal visualized iliac wing, sacroiliac joint, and sacral ala. Normal visualized soft tissue structures of the pelvis. MRI/Lower Ext/Jt Only/W Contrast IMPRESSION: Subchondral edema/cyst formation in the right superior acetabulum. No demonstrated acute fracture or discrete acetabular tear. Electronically Signed: Dale Cullen MD at 14:13 EDT ,
--- NOTE | 2023-12-15 09:55 | RAD_ITS ---
CLINICAL HISTORY: Female, 53 years old. Right hip osteoarthritis. PROCEDURE: ARTHROGRAM - RIGHT HIP CONSENT: The procedure as well as the benefits and possible complications including infection and bleeding were explained to the patient. Informed consent was obtained. FLUOROSCOPY TIME (if supplied): (46 seconds) minutes/seconds. 27.57 mGy Injection Information: 10 cc of dilute MRI contrast. Number of images obtained: 1 TECHNIQUE: (All elements of maximal sterile barrier technique followed, including US elements as applicable) The patient was in the supine position. The overlying skin was prepped and draped in the usual sterile fashion. Following local anesthetic application and under direct fluoroscopic guidance, a 22-gauge spinal needle was placed into the hip joint. 2 cc of Isovue 300 was injected for confirmation. Following this, 10 cc of dilute MRI contrast was injected. The patient tolerated the procedure well. RAD/Arthrogram Hip w/ MRI IMPRESSION: Successful right hip arthrogram for MRI examination. Electronically Signed: Sammy Degroot MD at 11:25 EDT ,
[2023-12-15] MEDS: Lidocaine 2% (5ml sdv) 5 ML VIAL.MPF INFILT (10:17)
[2023-12-15] MEDS: Iopamidol 10 ML in Syringe 1 EACH 600 ML INTRAARTIC (10:18)
[2023-12-15] MEDS: Gadoterate Meglumine Diluted 10 ML, Iopamidol 5 ML, Lidocaine 1% (20 ml mdv) 5 ML, Epin... INTRAARTIC (10:18)
== END | disposition home or self-care (01) ==
LOC: RAD 09:44
PROVIDERS: PCP Internal Medicine; Referring Provider Orthopaedic Surgery; Visit Provider Orthopaedic Surgery
DX: M16.11 Unilateral primary osteoarthritis, right hip (principal)
CPT/HCPCS: 27093; 73722; 77002; Q9967

== ENCOUNTER 2024-02-08 09:30 | Outpatient (RCR) | payer MEDICARE, SELFPAY ==
--- NOTE | 2024-01-06 14:34 | HP.PTEVAL_ITS ---
Patient's Visit Information Visit Information Visit Information: JENNIFER STAUFFER is a 53 year old F referred to Physical Therapy by Jaspal Mcmillan PA-C with a diagnosis of UNILATERAL PRIMARY OSTEOARTHRITIS ,RIGHT ,PAIN IN RIGHT. Date of Evaluation: 01/06/24 Physical Therapist: Gorge Rivera, PT, Cert MDT, OCS Visit Plan Frequency: 2-3x /Week Duration: 4-6 Weeks Plan: PT INTERVENTIONS AQUATIC THERAPY ROM HIP ,STRENGTHENING HIP/QUADS/HAMS ,FUNCTIONAL STRENGTHENING AND FLEXABILITY Subjective Subjective: This 53 y/o female presents to physical therapy with right hip point . Patient has had right hip pain for ~ 1 year. Patient has had right TKA 8 years ago. Seen PA at [facility] . Patient had x-rays showed DJD. Patient aggravating factors walking ,stairs unable to squat or kneel. Alleviating factors sitting or rest. Patient pain affects sleeping. Patient denies paresthesia/tingling. Patient multiple comorbities to influences co ndition lumbar surgery x2,RTC right ,right TKA , Achilles tendon repair right. Patient pain affects QOL and function and unable to work. Patient goals to decrease hip pain. SOCAIL: VOCATION: disability Pain Right Hip: Pain Intensity (Out of 10): 8 Pain Intensity Range: 10 Objective Objective: POSTURE: mild forward posture .hips/knees flexed PALPATION: unremarkable NEURO: denies paresthesia/tingling GAIT: ambulates with reciprocal pattern antalgic gait right side slow ranjeet knee slightly flexed AROM: supine hip flexion 70 degrees ,IR 15 degrees ,ER 40 degrees ,hip abduction 35 degrees,10-110 knee flexion MMT: ( peak force ) quads right 23.1 ,hamstrings 18.8 ,hip flexion 21.2 ,hip abduction 10.2 STAIRS: one step at time with rail Special Tests R Hip Scour: Positive R Hip NAZIA - Intraarticular Pathology: Positive R Hip FADDIR - Labrum: Positive R Hip Trendelenberg - Glut Medius: Positive R Hip Ladarius - IT Band: Positive Balance/Special Test Scores Lower Extremity Functional Score: 14 Goals Goal 1:: Patient to be I with HEP and Aquatics program Goal Time Frame: 4-6 Weeks Goal 2:: Patient to improve AROM right hip by 5-10 degrees to improve gait and function Goal Time Frame: 4-6 Weeks Goal 3:: Patient to improve peak force of hip by 5-10 # strength to improve function Goal Time Frame: 4-6 Weeks Goal 4:: Patient to improve LFES score by 5-10 # to improve function and ADL Goal Time Frame: 4-6 Weeks Goal 5:: Patient to normalize gait pattern by 70% of less antalgic gait Goal Time Frame: 4-6 Weeks Rehabilitation Potential Physical Therapy Diagnosis: This patient has right hip pain with DJD with pain ,decrease ROM hip ,weakness right hip causes decrease gait and function along with comorbities influences condition thus benefit from skilled PT Rehabilitation Potential: Good Anticipated Interventions Patient/Client Instruction: Educate patient on: Condition and Plan of Care For the Purpose of:: To decrease pain, To increase ROM, To improve muscle performance and motor function, To improve ability to perform ADL's, To increase tolerance to activity/condition/position, To improve ability of physical actions for home/community/work/leisure, To improve health of tissue, To decrease soft tissue restriction, To increase flexibility/ROM, To improve endurance, To improve balance, To reduce risk of recurrence and To prevent re-injury Therapeutic Exercise to Include: Strength training, Endurance training, Balance training, Postural training, Flexibilty training, In an aquatic setting and Active ROM For the Purpose of:: To decrease pain, To increase ROM, To improve muscle performance and motor function, To improve ability to perform ADL's, To increase tolerance to activity/condition/position, To improve ability of physical actions for home/community/work/leisure, To improve health of tissue, To decrease soft tissue restriction, To increase flexibility/ROM, To improve endurance, To improve balance, To improve safety with gait and To improve tolerance to ADL's Text: Thank you for the opportunity to evaluate your patient. For Medicare and Medicare HMO plans, please review the plan of care and approve it. It will need to be FAXED BACK to us at [phone] for Medicare purposes. For Medicare only, by signing this I certify the plan of care. Please let me know if there are questions or concerns regarding this plan of care. Physician Signature: Date:
--- NOTE | 2024-02-08 10:02 | HP.PTDCSUM ---
Discharge Summary D/C summary: It has been my pleasure to treat JENNIFER STAUFFER referred by Jaspal Mcmillan PA-C, with the diagnosis of UNILATERAL PRIMARY OSTEOARTHRITIS ,RIGHT ,PAIN IN RIGHT for a total of 7 visit(s). Discharge Date: Please see the following information for a summary of their discharge status. Subjective Subjective: Aquatics therapy did not help Pain Right Hip: Pain Intensity (Out of 10): 7 L groin: Pain Intensity (Out of 10): 0 R groin: Pain Intensity (Out of 10): 7 Low back: Pain Intensity (Out of 10): 7 Objective Objective/Function: POSTURE: mild forward posture .hips/knees flexed PALPATION: unremarkable NEURO: denies paresthesia/tingling GAIT: ambulates with reciprocal pattern antalgic gait right side slow ranjeet knee slightly flexed AROM: supine hip flexion 70 degrees ,IR 15 degrees ,ER 40 degrees ,hip abduction 35 degrees,10-110 knee flexion MMT: ( peak force ) quads right 23.8 ,hamstrings 28.8 ,hip flexion 28.2 ,hip abduction 102.2 STAIRS: one step at time with rail Goals Goal 1:: Patient to be I with HEP and Aquatics program Goal Progress: Progressing Goal 2:: Patient to improve AROM right hip by 5-10 degrees to improve gait and function Goal Progress: Progressing Goal 3:: Patient to improve peak force of hip by 5-10 # strength to improve function Goal Progress: Progressing Goal 4:: Patient to improve LFES score by 5-10 # to improve function and ADL Goal Progress: Progressing Goal 5:: Patient to normalize gait pattern by 70% of less antalgic gait Goal Progress: Progressing Plan Plan: D/C D/C Information d/c sentence: If there are questions or concerns regarding this patient's physical therapy, please feel free to call me at [phone]. Thank you for the referral of this patient. Sincerely, Gorge Rivera, PT, Cert MDT, OCS Balance/Gait/Functional tests Balance/Special Test Scores Lower Extremity Functional Score: 26
== END 2024-02-08 19:00 | disposition home or self-care (01) ==
LOC: PT 09:30
PROVIDERS: PCP Internal Medicine; Referring Provider Physician Assistant; Visit Provider Physician Assistant
DX: M16.11 Unilateral primary osteoarthritis, right hip (principal); M25.551 Pain in right hip
CPT/HCPCS: 97113; 97162; 97530

== ENCOUNTER 2024-06-24 23:15 | Emergency (ER) | payer OTHER, SELFPAY ==
[2024-06-24 23:16] VITALS: BP 184/118; PULSE 103; RESP 14; TEMP 37.3; O2SAT 100; BMI 43.3
--- NOTE | 2024-06-24 23:59 | EX.ED.DYSGE1 ---
HPI History of Present Illness Chief Complaint: Med Refill Informant: patient Narrative Narrative: Patient states she feels like she may be in opioid withdrawal. She has a morphine pump because of chronic back and joint pain and follows with Dr. Block. For the past 3 days or so it has been beeping every 10 minutes indicating that there is a problem with it. She usually gets it refilled every 3 months, the last time she had a refill was longer than that, she is not sure if it is out or if it is malfunctioning/broken, the last time this happened was a year or so ago and she states the pump actually physically broken leached morphine out into my body and she states she is feeling like she did then for the past 2 days, gradually, feeling basically anxious all over, increased pain, and shaky/tremulous and feeling like she has restless legs. She states in the past when this has happened, giving her narcotics has not helped at all, and she is just asking for a dose of something to help her relax that she can go to sleep tonight. It is Tuesday night, she plans on calling her pain management doctor tomorrow to begin the process of getting this fixed. [facility] Medical History Pancreatic insufficiency Restless leg syndrome Alcohol use Migraine headache History of electroconvulsive therapy Hypertension Sleep apnea Autoimmune disease Depression History of steroid therapy Excessive bleeding Injury of back Gastric reflux Non-smoker History of pain when walking Intertrigo Macromastia Vision changes IBS (irritable bowel syndrome) Hearing problem Generalized headaches Carpal tunnel syndrome Cataracts, bilateral Anemia Tachycardia Uncontrolled hypertension Chronic neck and back pain Limb weakness Abnormal bruising Uveitis Arthritis Home Medications ?Medication ?Instructions ?Recorded ?Last Taken ?Type lithium carbonate 300 mg capsule 450 mg PO QHS 01/15/21 Unknown History omeprazole 20 mg capsule,delayed 40 mg PO DAILY GERD 01/15/21 09/04/21 History release biotin 1 mg capsule 1 mg PO DAILY 03/25/21 Unknown History cholecalciferol (vitamin D3) 10 10 mcg PO DAILY 03/25/21 Unknown History mcg (400 unit) capsule duloxetine 60 mg capsule,delayed 60 mg PO BID 08/21/21 Unknown History release (Cymbalta) multivitamin 1 tab PO DAILY 08/21/21 Unknown History hydroxyzine pamoate 50 mg capsule 1 cap PO BID ANXIETY 03/24/22 Unknown History morphine (PF) .Route 06/24/24 Unknown History prednisolone acetate 1 % eye 1 drp ophthalmic (eye) BID 06/24/24 Unknown History drops,suspension Allergy/AdvReac Type Severity Reaction Status Date / Time methylene blue Allergy Mild Rash, Verified 06/24/24 23:18 Itching sulfamethoxazole (From Allergy Unknown Other Verified 06/24/24 23:18 Bactrim) trimethoprim (From Bactrim) Allergy Unknown Other Verified 06/24/24 23:18 adhesive Allergy hives Verified 06/24/24 23:18 NSAIDS (Non-Steroidal Allergy Hives Verified 06/24/24 23:18 Anti-Inflamma oxycodone (From Percocet) Allergy Hives Verified 06/24/24 23:18 Family History Other Arthritis Depression Hypertension Severe allergy Surgical History History of surgery History of colonoscopy Hx of bilateral breast reduction surgery Hx of laparoscopic gastric banding Hx laparoscopic cholecystectomy Rotator cuff tear History of vitrectomy History of cataract surgery History of Achilles tendon repair Tendinitis of wrist Total knee replacement status History of meniscal tear History of incisional hernia repair History of discectomy History of History of carpal tunnel release of both wrists Ganglion cyst History of tonsillectomy and adenoidectomy Social History Smoking Status: Never smoker alcohol intake: current alcohol intake frequency: holidays/special occasions only Alcohol type: other substance use type: does not use additional social history: Does Not Take Aspirin Does Not Take Ibuprofen ROS ROS ED Constitutional Constitutional ED: Denies chills or fever(s) Eyes Eyes: Denies change in vision or diplopia ENT ENT ED: Denies rhinorrhea or sore throat Cardiovascular Cardiovascular: Denies chest pain or palpitations Respiratory/Chest Respiratory/Chest: Denies cough or dyspnea Gastrointestinal Gastrointestinal: Denies abdominal pain, diarrhea, nausea or vomiting Genitourinary Genitourinary ED: Denies dysuria or hematuria Musculoskeletal Musculoskeletal: Reports arthralgias and back pain; Denies neck pain Integumentary Denies abscess or rash Neurologic Neurologic: Reports restless legs and tremor(s); Denies headache(s), paresthesias or weakness Psychiatric Psychiatric: Reports anxiety; Denies suicidal thoughts EXAM Physical Exam Const Vital Signs: 06/24/24 23:16 06/24/24 23:24 06/25/24 00:08 Temperature 99.2 F H 99.0 F Temperature Source Oral Pulse Rate 103 H 97 Respiratory Rate 14 18 Respiratory Effort Normal Non-Labored Respiratory Pattern Normal Blood Pressure 184/118 H 154/99 H Blood Pressure Mean 140 117 Pulse Ox 100 95 Oxygen Delivery Method Room Air 06/25/24 00:11 Temperature Temperature Source Pulse Rate Respiratory Rate Respiratory Effort Respiratory Pattern Blood Pressure 154/99 H Blood Pressure Mean 117 Pulse Ox Oxygen Delivery Method Positive well nourished, well developed and obese General Appearance ED: well developed and NAD Nutritional Appearance: obese HEENT Reports moist mucous membranes normocephalic and atraumatic Eyes PERRL and EOMs intact bilaterally Eyes Narrative: Pupils 2-3 mm Neck full ROM and supple Resp normal respiratory effort and clear to auscultation bilaterally Cardio regular rate, regular rhythm and no murmurs Rate: other Other Details: mild tachycardia Back/Spine Back/Spine Narrative: Left flank pain pump site nontender, no erythema, ecchymosis or purpura, or other skin color changes. Well-healed surgical incision. General Back: other FROM Extremity normal to inspection General Extremety ED: Negative for edema, pulses abnormal or tenderness General Extremity: Negative for edema or pulses abnormal Neuro oriented x3, CN's II-XII intact bilaterally and no sensory deficits noted Neuro Narrative: Resting tremor diffuse nonfocal nonlateralizing. Sensorium / Orientation: awake and alert Motor Exam: strength 5/5 throughout Psych mental status grossly normal Skin no rashes or lesions noted and no wounds MDM MDM MDM Narrative Medical decision making narrative: She is having some symptoms of opiate withdrawal, but she is not having nausea, abdominal cramping, diarrhea, and her pupils are 2-3 mm not dilated. She has not been lethargic and she certainly does not look lethargic here, she is little tachycardic and hypertensive which does go along with opiate withdrawal. She came in saying she felt like she was in withdrawal, however I questioned it because she said the last time this happened she was suggesting she had an excess of morphine in her system. I do not think that looks like it is the case now. Therefore I am comfortable giving her a dose of Ativan, also offering her a dose of clonidine given her blood pressure 184/118 mostly for withdrawal symptoms not necessarily for the pressure itself, which did come down prior to giving it, to the 150-160 range. Discharge Plan Triage Chief Complaint: Med Refill ED Provider: Amauri Bryant Dx/Rx/DC Orders Clinical Impression: Anxiety, Opioid withdrawal Instructions: ED Anxiety Reaction, ED Opioid Withdrawal Prescriptions: No Action cholecalciferol (vitamin D3) 10 mcg (400 unit) capsule 10 mcg PO DAILY biotin 1 mg capsule 1 mg PO DAILY lithium carbonate 300 MG capsule 450 mg PO QHS omeprazole 20 MG capsule,delayed release(DR/EC) 40 mg PO DAILY multivitamin Tablet 1 tab PO DAILY duloxetine [Cymbalta] 60 mg Capsule,Delayed Release(Dr/Ec) 60 mg PO BID hydroxyzine pamoate 50 mg capsule 1 cap PO BID prednisolone acetate 1 % drops,suspension 1 drp ophthalmic (eye) BID morphine (PF) .Route Patient Comments: pt. does not know the dosage; believes the last infusion was 3 months ago, but poor historian. Rx Instructions: INSTILL INTO IMPLANTED PUMP AND INFUSE DIRECTED BY PRESCRIBER. FOR INTRATHECAL USE ONLY. COMPOUND DRUG PRODUCT Primary Care Provider: Pat Brown Referrals: Ramy Block MD [Med Staff - Active Staff] - As soon as possible Pat Brown DO [Primary Care Provider] - Print Language: Upper Sorbian Disposition Disposition: Home, Self Care
[2024-06-25 00:08] VITALS: BP 154/99; PULSE 97; RESP 18; TEMP 37.2; O2SAT 95
[2024-06-25] MEDS: LORazepam 2 MG/ML Syringe 1 MG IM (00:09)
[2024-06-25 00:11] VITALS: BP 154/99
[2024-06-25] MEDS: cloNIDine HCl 0.2 MG Tablet PO (00:41)
== END 2024-06-25 00:42 | disposition home or self-care (01) ==
PROVIDERS: Emergency Provider Emergency Medicine; PCP Internal Medicine; Visit Provider Emergency Medicine
DX: F11.23 Opioid dependence with withdrawal (principal); I10 Essential (primary) hypertension; F41.9 Anxiety disorder, unspecified; Z76.0 Encounter for issue of repeat prescription; G89.29 Other chronic pain; Z96.89 Presence of other specified functional implants; E66.9 Obesity, unspecified
CPT/HCPCS: 96372; 99282

== ENCOUNTER 2024-06-25 19:00 | Emergency (ER) | payer OTHER, SELFPAY ==
[2024-06-25 19:01] VITALS: BP 154/106; PULSE 103; RESP 18; TEMP 36.4; O2SAT 96; BMI 43.2
== END 2024-06-25 19:53 | disposition left against medical advice (07) ==
LOC: ED 20:03
PROVIDERS: PCP Internal Medicine
DX: Z53.21 Procedure and treatment not carried out due to patient leaving prior to being seen by health care provider (principal)

== ENCOUNTER 2024-07-27 10:20 | Day surgery (SDC) | payer MEDICARE, SELFPAY ==
[2024-07-27] VITALS (8 sets, daily range): BP systolic 139–150; BP diastolic 84–97; PULSE 89–96; RESP 12–16; TEMP 36.6–36.9; O2SAT 96–98; BMI 29.8
[2024-07-27] MEDS: Lactated Ringers 1,000 ML 15 ML IV (11:07)
--- NOTE | 2024-07-27 11:20 | PRE.ANES_ITS ---
ASA Classification* ASA Classification ASA Classification: 3 Assessment & Plan Anesthesia* Anesthesia Assessment Anesthesia Assessment: Discussed sedation and/or anesthesia options, risks, benefits, and alternatives with patient/parents/legal guardian/POA. Questions invited. The patient/parents/legal guardian/POA seems to understand and agrees to proceed with anesthesia plan. Reviewed the physical assessment, medical history, allergy history and patient home medications list prior to surgery/procedure/anesthetic and documented any changes. Performed airway and anesthesia risk assessments. Anesthesia Type Anesthesia Type: General (Consider [place] scope intubation.) History Source History Obtained from:: Patient and Chart Anesthesia Focused Assessment* Temperature: 98.4 F Pulse Rate: 90 Blood Pressure: 150/84 Respiratory Rate: 12 Pulse Ox: 96 Airway Assessment Mouth opens: 2 cm Mallampati Score: IV Teeth Condition: Intact Neck Range of motion (ROM): Limited ROM (Somewhat decreased extension) Focused Labs Anesthesia Preop lab: CBC WBC 11.5 K/mm3 (4.4-11.0) H 03/02/22 14:52 RBC 4.96 M/mm3 (4.2-5.4) 03/02/22 14:52 Hgb 13.3 g/dL (12.0-15.0) 03/02/22 14:52 Hct 41.5 % (37-47) 03/02/22 14:52 Plt Count 321 K/mm3 (150-450) 03/02/22 14:52 CHEMISTRY Potassium 3.4 mmol/L (3.5-5.1) L 03/02/22 14:52 Sodium 141 mmol/L (136-145) 03/02/22 14:52 Magnesium 2.1 mg/dL (1.6-2.6) 08/24/21 14:52 BUN 10 mg/dL (7-18) 03/02/22 14:52 Creatinine 0.79 mg/dL (0.55-1.02) 03/02/22 14:52 Glucose 104 mg/dL (74-106) 03/02/22 14:52 POC Glucose 68 mg/dL (70-110) L 09/04/21 07:03 COAG PT 13.3 SECONDS (11.7-14.9) 08/24/21 14:52 Urine Test Negative Negative 03/26/22 07:45 Pre-Assessment Diagnosis/Proposed Procedure Planned Operative Procedure(s): (B) Removal of pain pump left back Anesthesia History 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 When Was Last Pacemaker Check QUESTION #4 FULL TEXT: You/Your Family Experience fever (hyperthermia) with Anesthesia Last Oral Intake Last Oral intake: Last Oral Intake NPO since 22:30 07/27/24 10:56 Meds taken in AM with sips of water? Meds patient instructed to take am of surgery Any additional information?: Yes Meds taken in AM with sips of water?: Yes Meds patient instructed to take am of surgery: Omeprazole PONV PONV - fire investigation manager: PONV - fire investigation manager Female Yes 07/19/24 08:26 HX of Motion Sickness No 07/19/24 08:26 HX of N/V After Surgery No 07/19/24 08:26 Non-Smoker Yes 07/19/24 08:26 Duration of Surgery greater No 07/19/24 08:26 than 60 minutes Number of Risk Factors 2 07/19/24 08:26 PONV Score Moderate Risk 07/19/24 08:26 Height & Weight Height & Weight: Anesthesia: Height & Weight Height 5 ft 3 in 07/27/24 10:56 Weight: 76.4 kg 07/27/24 10:56 Body Mass Index (BMI) 29.8 07/27/24 10:56 Respiratory Assessment Respiratory Assessment - fire investigation manager: Respiratory Tract Infection Hx - fire investigation manager Hx Respiratory Tract Infection No 07/19/24 08:26 STOP Sleep Apnea STOP Sleep Apnea - fire investigation manager: STOP Sleep Apnea - fire investigation manager Hx Hypertension Yes 07/19/24 08:26 Hx Sleep Apnea Yes: PT STATES CANNOT WEAR 07/19/24 08:26 CPAP/BIPAP CPAP No 07/19/24 08:26 BIPAP No 07/19/24 08:26 Do you snore loudly (louder than talking or can be heard Do you often feel tired/ fatigued/ sleepy during daytime? Has anyone observed you stop breathing during sleep? STOP Results Positive 07/19/24 08:26 QUESTION #5 FULL TEXT : Do you snore loudly (louder than talking or can be heard through closed doors)? Tobacco Use History Tobacco Use History - fire investigation manager: Tobacco Use History - fire investigation manager Tobacco Use Smoking Status Never smoker 07/19/24 08:26 Hx Tobacco Use No 07/19/24 08:26 Years Smoking Packs Smoked per Day Smoking Cessation Date was within the last 15 years Hx Smoking Cessation Date Hx Smoking Cessation Counseling Hematologic Medial History Hematologic Hx - fire investigation manager: Hematologic Medical Hx - photolith operator Hx of Blood Transfusion No 07/19/24 08:26 Hx of Transfusion in last 3 No 07/19/24 08:26 Months Date of Last Transfusion (if within last 3 months) Ever experience any problems No 07/19/24 08:26 with transfusion(s)? Specify any problems Hx of Preganancy in last 3 N/A 07/19/24 08:26 Months Nurse Filling Out Transfusion NBUCHER 07/19/24 08:26 & Questions: Date: 07/19/24 07/19/24 08:26 Time: 08:07/19/24 08:26 Patient unable to answer at this time (ie. confused, unrespo /Reproduction History /Reproductive History - fire investigation manager: /Reproductive Hx- fire investigation manager Hx Now Gestational Age (in weeks): EDC: Hx Hx Para Hx Section SAB No 07/19/24 08:26 Active Medications Active Medications: Current Medications Generic Name Dose Route Start Last Admin Trade Name Freq PRN Reason Stop Dose Admin Lactated Ringer's 1,000 mls @ 15 mls/hr 07/27/24 10:30 07/27/24 11:07 IV 07/30/24 05:09 15 mls/hr .Q48H RIGO Administration Protocol PFSH Medical History (Updated 07/19/24 @ 08:30 by Araceli Hernadez) Post-menopausal Pancreatic insufficiency Restless leg syndrome Alcohol use Migraine headache History of electroconvulsive therapy Hypertension Sleep apnea Autoimmune disease Depression History of steroid therapy Excessive bleeding Injury of back Gastric reflux Non-smoker History of pain when walking Intertrigo Macromastia Vision changes IBS (irritable bowel syndrome) Hearing problem Generalized headaches Carpal tunnel syndrome Cataracts, bilateral Anemia Tachycardia Uncontrolled hypertension Chronic neck and back pain Limb weakness Abnormal bruising Uveitis Arthritis Home Medications ?Medication ?Instructions ?Recorded ?Last Taken ?Type lithium carbonate 300 mg capsule 900 mg PO QHS 01/15/21 07/26/24 History omeprazole 20 mg capsule,delayed 40 mg PO DAILY GERD 01/15/21 07/27/24 History release biotin 1 mg capsule 1 mg PO DAILY 03/25/21 07/26/24 History cholecalciferol (vitamin D3) 10 10 mcg PO DAILY 03/25/21 07/24/24 History mcg (400 unit) capsule duloxetine 60 mg capsule,delayed 60 mg PO BID 08/21/21 07/26/24 History release (Cymbalta) multivitamin 1 tab PO DAILY 08/21/21 07/26/24 History hydroxyzine pamoate 50 mg capsule 1 cap PO BID ANXIETY 03/24/22 07/26/24 History morphine (PF) .Route 06/24/24 Unknown History prednisolone acetate 1 % eye 1 drp ophthalmic (eye) BID 06/24/24 07/24/24 History drops,suspension Allergy/AdvReac Type Severity Reaction Status Date / Time methylene blue Allergy Mild Rash, Verified 07/27/24 10:55 Itching sulfamethoxazole (From Allergy Unknown Other Verified 07/27/24 10:55 Bactrim) trimethoprim (From Bactrim) Allergy Unknown Other Verified 07/27/24 10:55 adhesive Allergy hives Verified 07/27/24 10:55 NSAIDS (Non-Steroidal Allergy Hives Verified 07/27/24 10:55 Anti-Inflamma oxycodone (From Percocet) Allergy Hives Verified 07/19/24 08:23 Family History Other Arthritis Depression Hypertension Severe allergy Surgical History History of surgery History of colonoscopy Hx of bilateral breast reduction surgery Hx of laparoscopic gastric banding Hx laparoscopic cholecystectomy Rotator cuff tear History of vitrectomy History of cataract surgery History of Achilles tendon repair Tendinitis of wrist Total knee replacement status History of meniscal tear History of incisional hernia repair History of discectomy History of History of carpal tunnel release of both wrists Ganglion cyst History of tonsillectomy and adenoidectomy Social History Smoking Status: Never smoker alcohol intake: current alcohol intake frequency: holidays/special occasions only Alcohol type: other substance use type: does not use additional social history: Does Not Take Aspirin Does Not Take Ibuprofen Review of Systems (Anesthesia) ROS Narrative System reviewed and no additional complaints, except as documented.
--- NOTE | 2024-07-27 12:00 | FORE_PTH ---
PATHOLOGY RESULTS PATIENT: JENNIFER STAUFFER LOC: [facility] – [place] U#:[id number] AGE/SX: 53/F ROOM: RE07/27/[address]: Dr. Ramy Block MD : 1970 BED: DIS: 07/27/2024 SPEC #: [id number] RECD: 07/27/24 17:12 STATUS: BRUNO REAnia #: [id number] TELMA: 07/27/24 12:[address]: Ramy Block DEPT: SURGICAL PATHOLOGY RECD BY: Dameon Kowalski ENTERED: 07/30/24 09:05 SP TYPE: FOREIGN B OT DR: Dr. Pat Brown, Tissues: FOREIGN BODY Procedures: Surgery Specimen Level I HEADER OPERATION: Removal of pain pump PRE-OP DIAGNOSIS: Chronic pain syndrome, malfunction of intrathecal pump TISSUE SUBMITTED: Pain pump due to malfunction MICROSCOPIC DIAGNOSIS Metallic battery, clinically pain pump (gross only). GUILHERME. 07/30/2024 MICROSCOPIC DESCRIPTION Slides are reviewed. GROSS DESCRIPTION Received in fixative is one container labeled with the patient's name and designated Pain pump due to malfunction. The specimen consists of a metallic battery measuring 8.5 x 7.5 x 1.8cm. Inscription on the battery is as follows: Medtronic Synchromed II programable pump [id number] SN [id number] [employer] [facility]. Attached catheter measures 11.0cm in length. This specimen is for gross identification only. 07/30/2024 CPT:93706
[2024-07-27] MEDS: Cefazolin 3 GM in Syringe 1 EACH IV (15:36)
[2024-07-27] MEDS: Lidocaine 0.5% (50 ml) 50 ML Vial (16:16)
[2024-07-27] MEDS: Bupiv/Epi 0.25% 30 ML Vial (16:16)
--- NOTE | 2024-07-27 16:23 | POSTOPAN2_ITS ---
Anesthesia Postop Eval I Sum Postop Eval Completion status Anesthesia document: Postop Eval 1 completed: Yes Anesthesia Postop Eval I Summary Anesthesia Postop Eval I Summary: Anesthesia Postop Eval I: Assessment Summary Airway patent Yes 07/27/24 16:23 CODER OPERATOR.MDOT Spontaneous unlabored Yes 07/27/24 16:23 CODER OPERATOR.MDOT respirations Mental status Awake,Calm 07/27/24 16:23 CODER OPERATOR.MDOT nausea No 07/27/24 16:23 CODER OPERATOR.MDOT Vomiting No 07/27/24 16:23 CODER OPERATOR.MDOT Anesthesia Postop Eval I: Fluid Summary Crystalloid volume administer 700 07/27/24 16:23 CODER OPERATOR.MDOT (ml) Colloids volume administered ( ml) Blood Product volume administered (ml) Total IV fluid infused 700 07/27/24 16:23 CODER OPERATOR.MDOT Anesthesia Postop Eval I: Summary Notes Anesthesia Complication No 07/27/24 16:23 CODER OPERATOR.MDOT Anesthesia Complication Comment: Post-operative progress note Anesthesia: Postop Eval II Evaluation Mental status: Awake and Calm Pain Level: 0 nausea: No Vomiting: No Complications Anesthesia Complication: No
--- NOTE | 2024-07-27 16:23 | PCM.POST.ANE ---
Anesthesia: Postop Eval I Current Vital Signs Temperature: 98.4 F Pulse Rate: 96 Blood Pressure: 146/92 Respiratory Rate: 16 Pulse Ox: 98 Oxygen Delivery Method: Room Air Assessment Airway patent: Yes Spontaneous unlabored respirations: Yes Mental status: Awake and Calm nausea: No Vomiting: No Anesthesia Complication: No Fluid Hydration Crystalloid volume administer (ml): 700 Total IV fluid infused: 700 Progress Note Anesthesia document: Postop Eval 1 completed: Yes
--- NOTE | 2024-07-27 16:23 | PCM.POSTANE2 ---
Anesthesia Postop Eval I Sum Postop Eval Completion status Anesthesia document: Postop Eval 1 completed: Yes Anesthesia Postop Eval I Summary Anesthesia Postop Eval I Summary: Anesthesia Postop Eval I: Assessment Summary Airway patent Yes 07/27/24 16:23 JAVASCRIPT SOFTWARE [email or web address] Spontaneous unlabored Yes 07/27/24 16:23 JAVASCRIPT SOFTWARE ENGINEER.MDOT respirations Mental status Awake,Calm 07/27/24 16:23 JAVASCRIPT SOFTWARE ENGINEER.MDOT nausea No 07/27/24 16:23 JAVASCRIPT SOFTWARE ENGINEER.MDOT Vomiting No 07/27/24 16:23 JAVASCRIPT SOFTWARE ENGINEER.MDOT Anesthesia Postop Eval I: Fluid Summary Crystalloid volume administer 700 07/27/24 16:23 JAVASCRIPT SOFTWARE ENGINEER.MDOT (ml) Colloids volume administered ( ml) Blood Product volume administered (ml) Total IV fluid infused 700 07/27/24 16:23 JAVASCRIPT SOFTWARE ENGINEER.MDOT Anesthesia Postop Eval I: Summary Notes Anesthesia Complication No 07/27/24 16:23 JAVASCRIPT SOFTWARE [email or web address].MDOT Anesthesia Complication Comment: Post-operative progress note Anesthesia: Postop Eval II Evaluation Mental status: Awake and Calm Pain Level: 0 nausea: No Vomiting: No Complications Anesthesia Complication: No
== END 2024-07-27 17:27 | disposition home or self-care (01) ==
LOC: SDC 10:22 → AC 10:23
PROVIDERS: PCP Internal Medicine; Referring Provider Anesthesiology Pain Medicine; Visit Provider Anesthesiology Pain Medicine
PROC: (CPT 62365; principal; 2024-07-27 11:45)
DX: T85.695A Other mechanical complication of other nervous system device, implant or graft, initial encounter (principal); Y75.2 Prosthetic and other implants, materials and neurological devices associated with adverse incidents; G89.4 Chronic pain syndrome; I10 Essential (primary) hypertension; G43.909 Migraine, unspecified, not intractable, without status migrainosus
CPT/HCPCS: 62365; 01999; 88300; J7120; J2405

== ENCOUNTER 2025-02-07 13:30 | Outpatient (RCR) | payer OTHER, MEDICARE, SELFPAY ==
--- NOTE | 2025-01-28 17:58 | HP.PTEVAL_ITS ---
Patient's Visit Information Visit Information Visit Information: JENNIFER STAUFFER is a 54 year old F referred to Physical Therapy by MANNY SADLER with a diagnosis of RIGHT HIP PAIN. Date of Evaluation: 01/28/25 Physical Therapist: Gorge Rivera, PT, Cert MDT, OCS Visit Plan Frequency: 2x /Week Duration: 7 WEEKS Plan: CANDIDATE FOR SMITH PT INTERVENTIONS ROM HIP,FLEXABILITY ,GRADE PRE'S QUADS/HAMS/HIP , FUNCTIONAL STRENGTHENING AND NUTEP Subjective Subjective: This 54 y/o female presents to physical therapy with right hip pain. Patient has had right hip pain for 2 years . Patient has progressive DJD left hip and needs SMITH but needs PT. Patient has had PT prior. Patient pain located right groin region. No pain medication. Patient has had no recent x-rays. Aggravating factors extended walking distances and standing ,unable to squat /kneeling and unable to do stairs. Described as sharp pain. Patient alleviating factors rest. Denies paresthesia/tingling-. Patient pain affects sleeping. Bowel/bladder- .Coughing/sneezing-. Patient condition affects QOL adn function and unable to work. Patient goals to decrease pain and possible SMITH. SOCIAL: single VOCATION: Pain Right: Pain Intensity (Out of 10): 8 Pain Intensity Range: 10 Comment: groin Objective Objective: POSTURE: mild forward posture GAIT: reciprocal pattern antalgic gait right side NEURO: denies paresthesia/tingling ,reflexes L3-4,L4-5,L5-S1 1/3 PALPATION: lateral trochanteric tender AROM: right hip flexion 80 degrees ,hip IR 10 degrees ,hip abduction 30 degrees all with pain ,knee flexion 0-110 degrees MMT: ( peak force) right quads 9.8 , hamstrings 10.3 ,hip flexion 12.3 Special Tests L Hip Scour: Positive L Hip Trendelenberg - Glut Medius: Negative Balance/Special Test Scores Lower Extremity Functional Score: 19 Goals Goal 1:: Patient to be I with HEP for hip Goal Time Frame: 4-6 Weeks Goal 2:: Patient to improve AROM hip flexion by 5-10 degrees to improve function and gait Goal Time Frame: 4-6 Weeks Goal 3:: Patient to improve peak force quads/hams/hip by 5-10# to improve gait Goal Time Frame: 4-6 Weeks Goal 4:: Patient to demonstrate 40% improvement with less pain and improved function Goal Time Frame: 4-6 Weeks Goal 5:: Patient to improve LFES score by 5 points to improve QOL and function Goal Time Frame: 4-6 Weeks Rehabilitation Potential Physical Therapy Diagnosis: This patient has DJD right hip pain with decrease ROM ,weakness ,impairs gait and function thus benefit from skilled PT Rehabilitation Potential: Fair Anticipated Interventions Patient/Client Instruction: Educate patient on: Condition and Plan of Care For the Purpose of:: To decrease pain, To increase ROM, To improve muscle performance and motor function, To increase tolerance to activity/condition/position, To improve ability of physical actions for home/community/work/leisure, To improve health of tissue, To decrease soft tissue restriction, To increase flexibility/ROM, To assume or resume ADL's, To reduce risk of recurrence and To improve tolerance to ADL's Therapeutic Exercise to Include: Strength training, Endurance training, Balance training, Postural training, Flexibilty training, In an aquatic setting and Active ROM Comment: QUADS/HAMS/HIP For the Purpose of:: To decrease pain, To increase ROM, To improve nutrient delivery to tissue, To increase oxygenation perfusion, To increase tolerance to activity/condition/position, To improve ability of physical actions for home/community/work/leisure, To improve health of tissue, To decrease soft tissue restriction, To increase flexibility/ROM, To improve endurance and To improve balance Text: Thank you for the opportunity to evaluate your patient. For Medicare and Medicare HMO plans, please review the plan of care and approve it. It will need to be FAXED BACK to us at [phone] for Medicare purposes. For Medicare only, by signing this I certify the plan of care. Please let me know if there are questions or concerns regarding this plan of care. Physician Signature: Date:
--- NOTE | 2025-05-15 08:58 | HP.PT.NRP ---
Patient Information Patient Information: JENNIFER STAUFFER was seen in my office for initial evaluation on 01/28/25. The following Plan of Care was established for this patient: POC Established Initial Frequency: 2x /Week Initial Duration: 7 WEEKS Anticipated Interventions Patient/Client Instruction: Educate patient on: Condition and Plan of Care For the Purpose of:: To decrease pain, To increase ROM, To improve muscle performance and motor function, To increase tolerance to activity/condition/position, To improve ability of physical actions for home/community/work/leisure, To improve health of tissue, To decrease soft tissue restriction, To increase flexibility/ROM, To assume or resume ADL's, To reduce risk of recurrence and To improve tolerance to ADL's Therapeutic Exercise to Include: Strength training, Endurance training, Balance training, Postural training, Flexibilty training, In an aquatic setting and Active ROM For the Purpose of:: To decrease pain, To increase ROM, To improve nutrient delivery to tissue, To increase oxygenation perfusion, To increase tolerance to activity/condition/position, To improve ability of physical actions for home/community/work/leisure, To improve health of tissue, To decrease soft tissue restriction, To increase flexibility/ROM, To improve endurance and To improve balance Last Seen Last Seen: This patient was last seen in our office . Pertinent comments regarding their Physical therapy will appear below: Patient was seen for PT for right hip pain -DJD for HEP ROM and strength thus d/c At this point I will be discontinuing this patient from physical therapy. I would be happy to see this patient again in the future if found appropriate by the physician. Thank you! Gorge Rivera, PT, Cert MDT, OCS Balance/Gait/Functional tests Balance/Special Test Scores Lower Extremity Functional Score: 19
== END 2025-02-07 19:00 | disposition home or self-care (01) ==
LOC: PT 13:30
PROVIDERS: PCP Internal Medicine
DX: M25.551 Pain in right hip (principal)
CPT/HCPCS: 97110; 97162